=== PATIENT | female | born 1970 | race Caucasian/White ===

== ENCOUNTER 2018-07-14 13:38 | Emergency (ER) | payer MEDICAID, SELFPAY ==
[2018-07-14 13:38] VITALS: BP 124/92; PULSE 118; RESP 18; TEMP 36.6; O2SAT 98; BMI 34.2
--- NOTE | 2018-07-14 14:21 | ED.VISSUMM ---
- ER Visit Summary Date of Service: 07/14/18 Chief Complaint: Right flank pain History of Present Illness: The patient is a 48 F who states she has had a right flank pain right abdominal pain for 3 months. She notes intermittent fevers. She denies any urinary symptoms. Patient has a history of cyclic vomiting. The patient states that she saw her doctor and was told that this is stress related. No diarrheal symptoms. No hematuria. No rashes. She states that it hurts her to lift her leg up. Physical Examination: Afebrile vital signs are stable Gen: Well-nourished well-developed Head: Normocephalic atraumatic Eyes: Perrl EOMI ENT: TMs clear no rhinorrhea moist mucous membranes Neck: Supple no lymphadenopathy no JVD nontender CVS: Regular rate rhythm no murmurs normal S1-S2 Respiratory: No distress clear to auscultation bilaterally chest nontender Abdomen: Soft nontender nondistended normal bowel sounds no masses Back: Nontender Extremity: Nontender no edema Skin: Normal color no rash Neuro: alert orientated ?3 CN II-XII intact normal strength sensation reflexes gait cerebellar Psych: Tearful and anxious Emergency Department Course and Treatment: Urinalysis was negative. CT abdomen pelvis without contrast demonstrates a very large amount of stool in the right ascending colon right upper quadrant. This could very well be the ball the patient tells me that she feels in her abdomen which pushes and possibly the source of her pain. We will be treating with magnesium citrate. After that daily Colace. She is to follow-up with her doctor. Impression: 1. Acute abdominal pain 2. Constipation This note was generated with [employer] dictation software. It may contain incorrect words, spelling, and punctuation that were not noted in review of the chart prior to signing ED Disposition - Plan for ED Patient: Disposition: Home or Assisted Living Chief Complaint: Back Instructions: ED Constipation Prescriptions: Docusate Sodium [Colace] 100 mg PO DAILY #20 cap Magnesium Citrate [Citrate Of Magnesia] 300 ml PO X1 #3 bottle Referrals: Kim Nunes, OMID-C [Primary Care Provider] - 3-5 Days
[2018-07-14 14:37] LABS: Bacteria 0 SEEN /hpf (None Seen); Mucous, Urine 0 SEEN /hpf (<or=2+); Red Blood Cells-Urine 0 SEEN /hpf (0-5); Squamous Epithelial Cells - UA 0 SEEN /hpf (5-10); White Blood Cells 0 SEEN /hpf (0-5)
[2018-07-14 14:39] LABS: Color, Urine Yellow (Yellow); Glucose, Dipstick Normal (Normal); Ketone-Dipstick Negative (Negative); Leukocyte Esterase-Dipstick Negative /ul (Negative); Nitrite-Dipstick Negative (Negative); Occult Blood-Urine Negative /ul (Negative); Protein-Dipstick Negative (Negative); Specific Gravity, Urine 1.005 (1.002-1.030); Urine Bilirubin Dipstick Negative (Negative); Urine Clarity Sl. Cloudy (Clear); Urine Urobilinogen Normal (Normal)
[2018-07-14] MEDS: Acetaminophen 500 MG Tablet 1000 MG PO (15:18)
[2018-07-14] MEDS: Magnesium Citrate 300 ML PO (15:18)
[2018-07-14 15:21] VITALS: PULSE 98; RESP 16
== END 2018-07-14 15:23 | disposition home or self-care (01) ==
PROVIDERS: Emergency Provider Emergency Medicine; Family Provider Nurse Practitioner Primary Care; PCP Nurse Practitioner Primary Care
DX: K59.00 Constipation, unspecified (principal); R10.9 Unspecified abdominal pain; J44.9 Chronic obstructive pulmonary disease, unspecified; F41.9 Anxiety disorder, unspecified; F32.9 Major depressive disorder, single episode, unspecified; Z72.0 Tobacco use; Z79.899 Other long term (current) drug therapy
CPT/HCPCS: 74176; 81001; 99283

== ENCOUNTER 2020-02-07 04:17 | Emergency (ER) | payer MEDICAID, SELFPAY ==
[2020-02-07 04:19] VITALS: BP 137/102; PULSE 103; RESP 27; TEMP 36.2; O2SAT 97; BMI 41.3
--- NOTE | 2020-02-07 04:19 | CT_ITS ---
STUDY: CT BRAIN WITHOUT CONTRAST REASON FOR EXAM: Female, 49 years old. AGGITATED, RUNNING INTO THINGS, NOT MAKING SENSE. ALT LOC RADIATION DOSAGE (If Supplied By Facility): CTDIvol = ( 44.99 ) mGy, DLP = ( 745.49 ) mGycm TECHNIQUE: Transaxial CT imaging of the brain was performed without administration of intravenous contrast material. Individualized dose optimization techniques were used for this CT. COMPARISON: No relevant priors. FINDINGS: Normal soft tissue structures. Normal calvarium. Normal size ventricles and extra-axial spaces for the patient''s age. Normal white matter tracts of the cerebral hemispheres. Normal basal ganglia and thalami. Normal brainstem. Normal cerebellum. There is no intracranial hemorrhage. There are no findings of an acute ischemic infarction. Normal visualized paranasal sinuses. CT/Brain/Head without Contrast IMPRESSION: Normal unenhanced CT scan of the brain. Electronically Signed: Srinivas Baptiste, at 6:12 EDT Tel , Service support ,
--- NOTE | 2020-02-07 04:19 | EKG12_ITS ---
Test Reason : ALT LOC Blood Pressure : / mmHG Vent. Rate : 106 BPM Atrial Rate : 106 BPM P-R Int : 148 ms QRS Dur : 090 ms QT Int : 348 ms P-R-T Axes : 056 061 030 degrees QTc Int : 462 ms Sinus tachycardia Nonspecific ST and T wave abnormality Abnormal ECG Confirmed by KEVIN PELAYO, WILLIAM ([id number]), web editor RENEE GUARDADO ([id number]) on 02/08/2020 3:20:10 PM Referred By: RANDY Confirmed By:WILLIAM BROWN MD
--- NOTE | 2020-02-07 04:25 | RAD_ITS ---
HISTORY: ALT LOC EXAM: XR Chest 1 View: COMPARISON: March 03, 2017 FINDINGS: # of images incl. paperwork: 1 Lungs are clear. Heart is not enlarged. No acute osseous pathology perceived. Pulmonary vascularity is distinct. No effusions. RAD/Chest 1 View (Portable) IMPRESSION: Normal. at 0452 Reported and signed by: Nick Blankenship MD Electronically Signed: Nick Blankenship MD at 4:51 EDT Tel , Service support ,
--- NOTE | 2020-02-07 04:39 | ED.DCSUM_ITS ---
- ER Visit Summary Date of Service: 02/07/20 Chief Complaint: Altered level consciousness with decreased mental status of uncertain etiology possibly secondary to medications History of Present Illness: The patient is a 49 F history of cyclic vomiting syndrome, reflux and COPD not requiring O2. Patient is brought in by squad accompanied by her family. They state that she they think she took a sleeping medication. And now has a decreased mental status. She does occasional use sleeping medications. He states he is never seen like this. He denies any recent head injury. She is on no blood thinners. He states she has not recently been ill. No nausea, vomiting or diarrhea. No fever. Physical Examination: Middle-aged female no acute distress. Vital signs are stable and afebrile. Patient has decreased mental status. But is arousable noxious stimuli. Family is present at bedside. H EENT exam eyes are closed. But if I open them actively her pupils are round and reactive about 3 mm bilaterally. No signs of trauma to her face or scalp. Neck nontender no lymphadenopathy. Lungs clear to auscultation bilaterally. Heart regular rhythm rate about 100 no murmur. Abdomen soft nontender normal bowel sounds no peritoneal signs. Patient does move her extremity extremities noxious stimuli. Neurologically her eyes are closed. She responds to noxious stimuli. Currently she will not follow commands. Test Results: CBC normal white count 10. Hemoglobin 12. No bands. Chemistries unremarkable normal creatinine gap. Glucose of 110. Liver enzymes normal. UA normal. EKG sinus tachycardia rate of 106 no acute signs of DC or ischemia. Ch est x-ray portable 1 view shows no acute abnormality read both myself and the radiologist. CAT scan of her brain without contrast was read as normal by the radiologist reviewed by me. Emergency Department Course and Treatment: Patient brought in for decreased mental status. Extensive differential would include such things as electrolyte abnormalities, infection, intracranial event versus altered level conscious secondary to medication. Treatment Plan: Repeat exam patient is doing well. I feel this is all secondary to the sleep medication she took. And was comfortable taking her home. Outpatient follow-up as needed. Disposition: Discharge Impression: Altered level consciousness secondary to medication This note was generated with Method [employer] software. It may contain incorrect words, spelling, and punctuation that were not noted in review of the chart prior to signing ED Disposition - Plan for ED Patient: Referrals: Kim Nunes, ROLL FORMING MACHINE OPERATOR-C [Primary Care Provider] -
[2020-02-07] MEDS: 0.9% Normal Saline 1,000 ML 1000 ML IV (04:46)
[2020-02-07 05:21] LABS: Bacteria 0 SEEN /hpf (None Seen); Mucous, Urine 0 SEEN /hpf (<or=2+); Red Blood Cells-Urine 0 SEEN /hpf (0-5); White Blood Cells 0 SEEN /hpf (0-5)
[2020-02-07 05:23] LABS: Color, Urine Yellow (Yellow); Glucose, Dipstick Normal (Normal); Ketone-Dipstick Negative (Negative); Leukocyte Esterase-Dipstick Negative /ul (Negative); Nitrite-Dipstick Negative (Negative); Occult Blood-Urine Negative /ul (Negative); Protein-Dipstick Negative (Negative); Urine Bilirubin Dipstick Negative (Negative); Urine Clarity Sl. Cloudy (Clear); Urine Urobilinogen Normal (Normal)
[2020-02-07 05:28] LABS: Absolute Lymphocyte Count 2.07 X10^3/uL (0.83-4.51); Absolute Neutrophil Count 7.7 X10^3/uL (2.0-7.7); Basophil# 0.05 X10^3/uL; Basophil% 0.5 % (0-1); Eosinophil# 0.09 X10^3/uL; Eosinophils% 0.8 % (0-5); Hemoglobin 12.5 g/dL (12.0-15.0); Lymphocyte # 2.07 X10^3/ul (4.0); Lymphocyte % 19.5 % (19-41); Mean Corp Hgb Conc 30.5 g/dL (32-36); Mean Corpuscular Hgb 25.6 pg (27.0-32.0); Mean Platelet Vol. 11.4 fl (6.2-12.0); Monocyte# 0.65 X10^3/uL; Monocyte% 6.1 % (0-10); NRBC Flagged by Analyzer 0 % (0-5); Neutrophil # 7.73 X10^3/uL (2.7-7.7); Neutrophil % 72.6 % (47-70); Platelet Count 222 K/mm3 (150-450); RBC Distribution Width CV 15.4 % (11.6-14.6); RBC Distribution Width SD 47.1 fl (35.1-43.9); Red Blood Count 4.88 M/mm3 (4.2-5.4); White Blood Count 10.6 K/mm3 (4.4-11.0)
[2020-02-07 05:46] LABS: Squamous Epithelial Cells - UA 0-5 SEEN /hpf (5-10)
[2020-02-07 05:48] LABS: Alcohol, Blood (Medical)-Serum < 3.0 mg/dL
[2020-02-07 05:51] LABS: ALB/GLOB Ratio 0.8 RATIO (0.9-2.4); AST(SGOT) 16 U/L (15-37); Alanine Aminotransfer ALT/SGPT 17 U/L (13-56); Albumin, Serum 3.4 g/dL (3.2-5.0); Alkaline Phosphatase 113 U/L (45-117); Anion Gap 7 (5-15); BUN 9 mg/dL (7-18); BUN/Creat Ratio 9.5 RATIO (10-20); Calcium,Total 8.5 mg/dL (8.5-10.1); Chloride 101 mmol/L (98-107); Creatinine, Serum 0.95 mg/dL (0.55-1.02); EST Glomerular Filtration Rate 67 mL/min (>60); Est Glom Filt Rate - Afr Amer 81 mL/min (>60); Estimated Creatinine Clearance 65.88 ml/min; Globulin 4.1 g/dL (2.2-4.2); Glucose 110 mg/dL (74-106); Potassium 3.4 mmol/L (3.5-5.1); Protein, Total 7.5 g/dL (6.4-8.2); Sodium Level 138 mmol/L (136-145)
--- NOTE | 2020-02-07 06:22 | ED.DEP ---
ED Disposition - Plan for ED Patient: Disposition: Home or Assisted Living Instructions: Altered Loc Referrals: Kim Nunes, VERIFICATION ENGINEER-C [Primary Care Provider] - 1-2 Days if not improving Additional Instructions: All of her labs and tests today were normal. This appears to be secondary to the sleep medication she took. Follow-up with your doctor if not improving. She should get back to normal later today.
--- NOTE | 2020-02-07 06:34 | ED.RN ---
PT REMAINS RESTLESS AND ATTEMPTS TO GET OUT OF BED,PT MOVED TO ROOM 2. PT'S AND DAUGHTER LEFT AND CAN SEE PT BETTER IN THIS ROOM.PT SPEECH SLURRED AT TIMES, AND MUCH INSTRUCTIONS NEEDED TO GET HER TO DO WHAT IS ASKED.
[2020-02-07 06:36] VITALS: PULSE 99; RESP 20; O2SAT 99
[2020-02-07 07:30] VITALS: PULSE 102; RESP 22; O2SAT 98
[2020-02-07 08:51] VITALS: BP 135/88; PULSE 98; RESP 22; O2SAT 98
[2020-02-07 09:41] LABS: Bedside Glucose 130 mg/dL (70-110)
== END 2020-02-07 08:51 | disposition home or self-care (01) ==
PROVIDERS: Emergency Provider Emergency Medicine; PCP Nurse Practitioner Primary Care
DX: R40.4 Transient alteration of awareness (principal); J44.9 Chronic obstructive pulmonary disease, unspecified; Z72.0 Tobacco use
CPT/HCPCS: 70450; 71045; 80053; 80320; 81001; 82962; 85025; 93005; 96360; 96361; 99285; J7030; P9612; A4216; G0480

== ENCOUNTER 2020-12-22 17:26 | Emergency (ER) | payer MEDICAID, SELFPAY ==
[2020-12-22 17:27] VITALS: BP 121/109; PULSE 114; RESP 16; TEMP 36.8; O2SAT 96; BMI 35.8
[2020-12-22] MEDS: LORazepam 1 MG Tablet PO (18:14)
[2020-12-22] MEDS: proMETHazine 25 MG Tablet PO (18:14)
[2020-12-22 18:29] LABS: Mucous, Urine 0 SEEN /hpf (<or=2+); Red Blood Cells-Urine 0 SEEN /hpf (0-5); White Blood Cells 0 SEEN /hpf (0-5)
[2020-12-22 18:32] LABS: Absolute Lymphocyte Count 2.49 X10^3/uL (0.83-4.51); Absolute Neutrophil Count 6.3 X10^3/uL (2.0-7.7); Basophil# 0.04 X10^3/uL; Basophil% 0.4 % (0-1); Eosinophil# 0.06 X10^3/uL; Eosinophils% 0.6 % (0-5); Hematocrit 40.1 % (37-47); Hemoglobin 12.9 g/dL (12.0-15.0); Lymphocyte # 2.49 X10^3/ul (4.0); Lymphocyte % 26.3 % (19-41); Mean Corp Hgb Conc 32.2 g/dL (32-36); Mean Corpuscular Hgb 28.5 pg (27.0-32.0); Mean Corpuscular Volume 88.7 fL (81-99); Mean Platelet Vol. 10.7 fl (6.2-12.0); Monocyte# 0.58 X10^3/uL; Monocyte% 6.1 % (0-10); NRBC Flagged by Analyzer 0 % (0-5); Neutrophil # 6.27 X10^3/uL (2.7-7.7); Neutrophil % 66.2 % (47-70); Platelet Count 316 K/mm3 (150-450); RBC Distribution Width SD 45.5 fl (35.1-43.9); Red Blood Count 4.52 M/mm3 (4.2-5.4); White Blood Count 9.5 K/mm3 (4.4-11.0)
[2020-12-22 18:33] LABS: Color, Urine Yellow (Yellow); Glucose, Dipstick Normal (Normal); Ketone-Dipstick 5 mg/dl (Negative); Leukocyte Esterase-Dipstick 25 /ul (Negative); Nitrite-Dipstick Negative (Negative); Occult Blood-Urine Negative /ul (Negative); Protein-Dipstick Negative (Negative); Urine Bilirubin Dipstick Negative (Negative); Urine Clarity Clear (Clear); Urine Urobilinogen Normal (Normal)
[2020-12-22 18:41] LABS: Amphetamine Urine VISTA POSITIVE (<1000 ng/mL); Barbiturate Urine VISTA NEGATIVE (< 200 ng/mL); Benzodiazepine Urine VISTA NEGATIVE (< 200 ng/mL); Cocaine Urine VISTA NEGATIVE (< 300 ng/mL); Ecstacy Urine VISTA POSITIVE (< 500 ng/mL); Methadone Urine VISTA NEGATIVE (< 300 ng/mL); PCP Urine VISTA NEGATIVE (< 25 ng/mL); THC Urine VISTA POSITIVE (< 50 ng/mL); Vista UDS pH Range 6
[2020-12-22 18:42] LABS: Bacteria RARE /hpf (None Seen); Hyaline Cast 0-5 SEEN /lpf (0-5); Squamous Epithelial Cells - UA 0-5 SEEN /hpf (5-10)
[2020-12-22 18:51] LABS: Anion Gap 7 (5-15); BUN 7 mg/dL (7-18); BUN/Creat Ratio 6.5 RATIO (10-20); Calcium,Total 8.8 mg/dL (8.5-10.1); Chloride 108 mmol/L (98-107); Creatinine, Serum 1.08 mg/dL (0.55-1.02); EST Glomerular Filtration Rate 57 mL/min (>60); Est Glom Filt Rate - Afr Amer 70 mL/min (>60); Estimated Creatinine Clearance 57.32 ml/min; Glucose 86 mg/dL (74-106); Potassium 3.6 mmol/L (3.5-5.1); Sodium Level 139 mmol/L (136-145); Thyroid Stim Hormone (TSH) 1.14 uIU/mL (0.358-3.74)
--- NOTE | 2020-12-22 18:57 | ED.VISSUMM ---
- ER Visit Summary Date of Service: 12/22/20 Chief Complaint: Anxiety History of Present Illness: The patient is a 50 F who sees Kim Des. She reports that my dog has worms and no one can see them but me. State this is caused a constant panic attack for the past 4 days. She denies any other visual hallucinations. She denies suicidal or homicidal ideation. She denies auditory hallucinations. On review of systems patient complains of nausea. She reports that she vomited 2 hours ago. There is no blood or emesis. She denies any abdominal pain or diarrhea. She has a headache is 7 out of 10 in severity. She does have a history of similar headaches. Daughter reports patient has a history of methamphetamine abuse. Physical Examination: Vitals: 90.2, 121/109, 114, 16, 96% room air she is not hypoxic. General: Well-nourished and well-developed. Head: Normocephalic atraumatic. Neck: Supple, no lymphadenopathy. No JVD. Nontender. Cardiovascular: Regular rate and rhythm. No murmurs. Respiratory: No respiratory distress. Clear to auscultation bilaterally. Abdominal: Soft, nontender, nondistended, normal bowel sounds. No guarding, rebound, or peritoneal signs. Back: Nontender. Extremities: Nontender, no edema. Skin: Normal color, no rash. Neurologic: Alert and oriented ?3. Cranial nerves II through XII are intact. Normal strength and sensation. Psych: Mental status exam: Patient appears their stated age. Good posture and grooming. Good eye contact. Normal rate, volume, and latency of speech. No suicidal or homicidal ideation. No auditory hallucinations. Flow of thought is tangential. Patient is very irritable and labile.. Insight and judgment is fair. Test Results: CBC is normal. UA is negative. Tox screen shows methamphetamines, amphetamines, and marijuana. Chem-7 shows a chloride of 108 and creatinine of 1.08. TSH is 1.14. Alcohol is negative. Emergency Department Course and Treatment: Patient was discussed with case management and has been seen by them in the emergency department. She does not meet criteria for psychiatric hospitalization. I feel that that her visual hallucinations are likely due to the methamphetamine abuse. Treatment Plan: Patient will be discharged instructions to follow-up with 180 soon as possible. Return to the emergency department for any worsening symptoms. Disposition: To home in [facility] and stable condition. Impression: 1 1. Polysubstance abuse. This note was generated with [employer] dictation software. It may contain incorrect words, spelling, and punctuation that were not noted in review of the chart prior to signing ED Disposition - Plan for ED Patient: Instructions: ED Drug Abuse Referrals: [facility] [STAFF PHYSICIAN] - As soon as possible
[2020-12-22 19:04] LABS: Alcohol, Blood (Medical)-Serum < 3.0 mg/dL
[2020-12-22 19:15] VITALS: RESP 16
--- NOTE | 2020-12-22 19:35 | CM.ED ---
SOCIAL WORK Informant: Dr. Bal Reason for Consult: Mental Health/Substance Abuse Met with patient and daughter in room along with Dr. Bal. Patient presents to [facility] ER by her daughter due to visual hallucinations. Daughter reports patient is seeing worms and bugs in the home. Daughter reports patient with history of meth use. Patient admits to use of meth 5 days ago and marijuana 3 days ago. Patient reports many social stressors over the last year that led to meth use. Patient denies suicidal and homicidal ideation, plan or intent. Lab work was completed. Dr. Bal along with this worker reviewed results with patient and daughter with patient's permission. Patient positive for methamphetamines. Patient continued to deny recent use. Patient counseled on use and side effects of meth and provided with resources. Emotional support provided to daughter. Daughter to transport patient home. Plan: Home with substance abuse resources provided PELON Hyatt, SUPERINTENDENT GAS DISTRIBUTION
[2020-12-22 19:37] VITALS: RESP 18
== END 2020-12-22 19:52 | disposition home or self-care (01) ==
LOC: ED 18:34
PROVIDERS: Emergency Provider Emergency Medicine; PCP Nurse Practitioner Primary Care
DX: F19.10 Other psychoactive substance abuse, uncomplicated (principal)
CPT/HCPCS: 80048; 80307; 81001; 82077; 84443; 85025; 99283

== ENCOUNTER 2021-08-30 17:51 | Emergency (ER) | payer MEDICAID, SELFPAY ==
[2021-08-30 17:52] VITALS: BP 159/85; PULSE 106; RESP 15; TEMP 35.3; O2SAT 100; BMI 34.9
--- NOTE | 2021-08-30 18:40 | EKG12_ITS ---
Test Reason : [facility] [place] Blood Pressure : / mmHG Vent. Rate : 088 BPM Atrial Rate : 087 BPM P-R Int : 112 ms QRS Dur : 086 ms QT Int : 364 ms P-R-T Axes : 012 051 036 degrees QTc Int : 440 ms Sinus rhythm Abnormal ECG Confirmed by KEVIN PELAYO, WILLIAM ([id number]), scientific editor SHAUNNA NARAYANAN ([id number]) on 09/04/2021 10:54:47 AM Referred By: SUZE Confirmed By:WILLIAM BROWN MD
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
[2021-08-30] MEDS: LORazepam 2 MG/ML Syringe 1 MG IM ×2 (19:14→22:40)
[2021-08-30 19:22] VITALS: BP 141/71; PULSE 91; RESP 14; O2SAT 97
[2021-08-30 19:26] LABS: Absolute Lymphocyte Count 2.54 X10^3/uL (0.83-4.51); Absolute Neutrophil Count 4.4 X10^3/uL (2.0-7.7); Basophil# 0.06 X10^3/uL; Basophil% 0.8 % (0-1); Eosinophil# 0.11 X10^3/uL; Eosinophils% 1.5 % (0-5); Hematocrit 46.5 % (37-47); Hemoglobin 14.6 g/dL (12.0-15.0); Lymphocyte # 2.54 X10^3/ul (0.83-4.51); Mean Corp Hgb Conc 31.4 g/dL (32-36); Mean Corpuscular Hgb 28.4 pg (27.0-32.0); Mean Corpuscular Volume 90.5 fL (81-99); Mean Platelet Vol. 10.9 fl (6.2-12.0); Monocyte# 0.37 X10^3/uL; Monocyte% 4.9 % (0-10); NRBC Flagged by Analyzer 0 % (0-5); Neutrophil # 4.38 X10^3/uL (2.7-7.7); Neutrophil % 58.5 % (47-70); Platelet Count 278 K/mm3 (150-450); RBC Distribution Width CV 12.6 % (11.6-14.6); Red Blood Count 5.14 M/mm3 (4.2-5.4); White Blood Count 7.5 K/mm3 (4.4-11.0)
[2021-08-30 19:46] LABS: ALB/GLOB Ratio 0.9 RATIO (0.9-2.4); AST(SGOT) 15 U/L (15-37); Alanine Aminotransfer ALT/SGPT 17 U/L (13-56); Albumin, Serum 3.7 g/dL (3.2-5.0); Alkaline Phosphatase 92 U/L (45-117); Anion Gap 8 (5-15); BUN 8 mg/dL (7-18); BUN/Creat Ratio 10.1 RATIO (10-20); CPK Total, Creatine Kinase 72 U/L (26-192); Calcium,Total 9.3 mg/dL (8.5-10.1); Chloride 105 mmol/L (98-107); Creatinine, Serum 0.79 mg/dL (0.55-1.02); EST Glomerular Filtration Rate 82 mL/min (>60); Est Glom Filt Rate - Afr Amer 99 mL/min (>60); Estimated Creatinine Clearance 77.51 ml/min; Globulin 4.1 g/dL (2.2-4.2); Glucose 68 mg/dL (74-106); Potassium 3.1 mmol/L (3.5-5.1); Protein, Total 7.8 g/dL (6.4-8.2); Sodium Level 140 mmol/L (136-145)
[2021-08-30 20:02] VITALS: RESP 14
--- NOTE | 2021-08-30 20:03 | ED.RN ---
pt refused sandwich, string cheese and cookie d/t being mad because she could not have silverware to eat yogurt. she said she would drink the yogart then refused it.
[2021-08-30 20:06] LABS: Amphetamine Urine VISTA POSITIVE (<1000 ng/mL); Barbiturate Urine VISTA NEGATIVE (< 200 ng/mL); Benzodiazepine Urine VISTA NEGATIVE (< 200 ng/mL); Cocaine Urine VISTA NEGATIVE (< 300 ng/mL); Ecstacy Urine VISTA NEGATIVE (< 500 ng/mL); Methadone Urine VISTA NEGATIVE (< 300 ng/mL); PCP Urine VISTA NEGATIVE (< 25 ng/mL); THC Urine VISTA POSITIVE (< 50 ng/mL); Vista UDS pH Range 5
--- NOTE | 2021-08-30 20:29 | CM.ED ---
SOCIAL WORK Referral called to [facility]. No beds available. Referral called and faxed to [facility]. Pending review at this time. Patrick Cisneros, TABLE HAND, TRANSPORTATION SECURITY OFFICER
--- NOTE | 2021-08-30 20:43 | ED.RN ---
Received report from Meg. PT now in room 5 with mateoter.
[2021-08-30 21:04] LABS: Bacteria 0 SEEN /hpf (None Seen); Mucous, Urine 0 SEEN /hpf (<or=2+); Red Blood Cells-Urine 0 SEEN /hpf (0-5)
--- NOTE | 2021-08-30 21:06 | CM.ED ---
SOCIAL WORK Call to [facility] to check on status of referral. Under review at this time. Patrick Cisneros, MICA BUILDER, KENNEL OPERATOR
[2021-08-30 21:19] LABS: Color, Urine Yellow (Yellow); Glucose, Dipstick Normal (Normal); Ketone-Dipstick Negative (Negative); Leukocyte Esterase-Dipstick 25 /ul (Negative); Nitrite-Dipstick Negative (Negative); Occult Blood-Urine Negative /ul (Negative); Protein-Dipstick Negative (Negative); Urine Bilirubin Dipstick Negative (Negative); Urine Clarity Clear (Clear); Urine Urobilinogen Normal (Normal)
[2021-08-30 21:32] LABS: Hyaline Cast 0-5 SEEN /lpf (0-5); Squamous Epithelial Cells - UA 0-5 SEEN /hpf (5-10); White Blood Cells 0-5 SEEN /hpf (0-5)
[2021-08-30 21:53] VITALS: RESP 16
--- NOTE | 2021-08-30 21:58 | CM.ED ---
SOCIAL WORK Referral faxed to [facility]. Patient accepted to Dual Unit by Dr. Kumari. Report to be called to [phone] option 1. [place] to set up transport. Patient and patient's updated. [place] [facility] faxed per request. Patrick Cisneros, RASPBERRY CHECKER, OFFICE INSPECTOR
[2021-08-30 22:40] VITALS: RESP 16
[2021-08-30] MEDS: clonazePAM 0.5 MG Tablet PO (23:00)
[2021-08-30] MEDS: Amitriptyline 100 MG Tablet 150 MG PO (23:00)
[2021-08-30] MEDS: Gabapentin 800 MG Tablet PO (23:00)
--- NOTE | 2021-08-30 23:03 | EDS_ITS ---
HPI HPI - Psych History of Present Illness Chief Complaint: Mental Health Informant: patient Onset/Context/Timing Onset: Weeks (4) Context: Gradual Onset Timing: Continuous Worsened by: - (Nothing) Relieved by: Nothing Associated Symptoms Associated Symptoms - Psych: Positive for Depressed, Change in Eating and Change in sleeping Narrative Narrative: Patient presents with depression and suicidal ideation that has been getting worse over the last 4 weeks. Patient states she has been feeling more depressed lately. Patient states she has not been eating or sleeping as well. Patient states that she cut herself with scissors to relieve stress. Patient denies any visual or auditory hallucinations. Patient states she has been more depressed since her father recently. Patient states that when she tries to sleep states she feels like she hears her father crying in pain. PFSH PFS Medical History Anxiety COPD (chronic obstructive pulmonary disease) Depression Substance abuse Home Medications budesonide-formoterol 2 puff INHALATION BID 10/22/16 [History Last Taken 06/07/17 20:00] omeprazole 40 mg PO DAILY #30 cap 03/06/17 [Rx Last Taken 06/07/17 10:00] dicyclomine 10 mg PO TIDAC #20 cap 06/10/17 [Rx Last Taken Unknown] amitriptyline 150 mg PO QHS 07/14/18 [History Last Taken Unknown] clonazepam 0.25 mg PO BID 07/14/18 [History Last Taken Unknown] gabapentin 800 mg PO TIDCM 12/22/20 [History Last Taken Unknown] Allergy/AdvReac Type Severity Reaction Status Date / Time No Known Allergies Allergy Verified 08/30/21 17:54 Surgical History (Updated 08/30/21 @ 23:[address] Rodrigo Ferrari DO) History of hysterectomy Social History Smoking Status: Current every day smoker tobacco type: cigarettes ROS ROS ED Constitutional Constitutional ED: Denies chills or fever(s) Eyes Eyes: Denies blurry vision or change in vision ENT ENT ED: Denies rhinorrhea or sore throat Cardiovascular Cardiovascular: Denies chest pain or palpitations Respiratory/Chest Respiratory/Chest: Denies cough or dyspnea Gastrointestinal Gastrointestinal: Reports nausea; Denies vomiting Genitourinary Genitourinary ED: Denies dysuria or hematuria Musculoskeletal Musculoskeletal: Reports back pain; Denies neck pain Integumentary Denies abscess or rash Neurologic Neurologic: Denies headache(s) or weakness Allergic/Immunologic Allergic/Immunologic ED: Denies mouth swelling or urticaria EXAM Physical Exam Const Vital Signs: 08/30/21 17:52 08/30/21 19:22 08/30/21 20:02 Temperature 95.6 F L Temperature Source Temporal Pulse Rate 106 H 91 Respiratory Rate 15 14 14 Blood Pressure 159/85 H 141/71 H Blood Pressure Mean 109 94 Pulse Ox 100 97 Oxygen Delivery Method Room Air Room Air Positive well nourished, well developed and obese General Appearance ED: well developed Nutritional Appearance: obese HEENT normocephalic and atraumatic Neck supple and no JVD Resp normal respiratory effort and clear to auscultation bilaterally Cardio no murmurs Rate: regular rate Rhythm: regular rhythm GI non-tender and non-distended Auscultation: normoactive bowel sounds Palpation: soft Extremity normal to inspection General Extremety ED: Negative for edema or tenderness General Extremity: Negative for edema Neuro oriented x3, CN's II-XII intact bilaterally and no sensory deficits noted Sensorium / Orientation: alert Motor Exam: strength 5/5 throughout Psych mental status grossly normal Activity / Motor Behavior: avoids eye contact Speech: pressured Mood & Affect: depressed, tearful and labile affect Thought Content: suicidality Skin Rashes: no rashes Trauma: laceration linear and superficial MDM MDM MDM Narrative Medical decision making narrative: Suicide precautions were maintained. CBC was within normal limits. Urinalysis does not show any evidence of urinary tract in fection. Urine tox screen was positive for amphetamines and cannabinoids. Comprehensive metabolic profile was within normal limits. Total CPK was normal at 72. EKG was obtained. On my interpretation, it showed a normal sinus rhythm with a rate of 88. OR interval, QRS interval, and QTc intervals were all normal. [place] was normal. There are nonspecific ST-T wave changes. This was unchanged compared to previous EKG dated 02/07/2020. Serum alcohol level was normal. COVID-19 rapid antigen was obtained and was negative. Social work was in to evaluate the patient. She felt that the patient would benefit from inpatient treatment. She was able to arrange for admission to [facility] for psychiatry. Patient will be transferred there. Lab Data Attestation: I reviewed the patient's lab results. Labs: Laboratory Results - last 24 hr 08/30/21 08/30/21 08/30/21 18:13 18:55 19:09 WBC 7.5 RBC 5.14 Hgb 14.6 Hct 46.5 MCV 90.5 MCH 28.4 MCHC 31.4 L RDW Std Deviation 42.0 RDW Coeff of David 12.6 Plt Count 278 MPV 10.9 Immature Gran % (Auto) 0.300 Neut % (Auto) 58.5 Lymph % (Auto) 34.0 [place] % (Auto) 4.9 Eos % (Auto) 1.5 Baso % (Auto) 0.8 Absolute Neuts (auto) 4.4 Absolute Lymphs (auto) 2.54 Nucleated RBC % 0 Sodium Potassium Chloride Carbon Dioxide Anion Gap BUN Creatinine Estim Creat Clear Calc Est GFR (MDRD) Af Amer Est GFR (MDRD) Non-Af BUN/Creatinine Ratio Glucose Calcium Total Bilirubin AST ALT Alkaline Phosphatase Total Creatine Kinase Total Protein Albumin Globulin Albumin/Globulin Ratio Urine Color Yellow Urine Clarity Clear Urine pH 6.0 Ur Specific [place] 1.010 Urine Protein Negative Urine Glucose (UA) Normal Urine Ketones Negative Urine Occult Blood Negative Urine Nitrite Negative Urine Bilirubin Negative Urine Urobilinogen Normal Ur Leukocyte Esterase 25 H Urine RBC 0 SEEN Urine WBC 0-5 SEEN Ur Squamous Epith Cells 0-5 SEEN Urine Bacteria 0 SEEN Hyaline Casts 0-5 SEEN Urine Mucus 0 SEEN Urine Opiates Screen NEGATIVE Urine Methadone Screen NEGATIVE Ur Barbiturates Screen NEGATIVE Ur Phencyclidine Scrn NEGATIVE Ur Amphetamines Screen POSITIVE H U Methamphetamin-MDMA NEGATIVE U Benzodiazepines Scrn NEGATIVE Urine Cocaine Screen NEGATIVE U Cannabinoids Screen POSITIVE H Ur Drug Screen Comment Ethyl Alcohol 08/30/21 08/30/21 19:09 19:09 WBC RBC Hgb Hct MCV MCH MCHC RDW Std Deviation RDW Coeff of David Plt Count MPV Immature Gran % (Auto) Neut % (Auto) Lymph % (Auto) [place] % (Auto) Eos % (Auto) Baso % (Auto) Absolute Neuts (auto) Absolute Lymphs (auto) Nucleated RBC % Sodium 140 Potassium 3.1 L Chloride 105 Carbon Dioxide 27.0 Anion Gap 8 BUN 8 Creatinine 0.79 Estim Creat Clear Calc 77.51 Est GFR (MDRD) Af Amer 99 Est GFR (MDRD) Non-Af 82 BUN/Creatinine Ratio 10.1 Glucose 68 L Calcium 9.3 Total Bilirubin 0.40 AST 15 ALT 17 Alkaline Phosphatase 92 Total Creatine Kinase 72 Total Protein 7.8 Albumin 3.7 Globulin 4.1 Albumin/Globulin Ratio 0.9 Urine Color Urine Clarity Urine pH Ur Specific [place] Urine Protein Urine Glucose (UA) Urine Ketones Urine Occult Blood Urine Nitrite Urine Bilirubin Urine Urobilinogen Ur Leukocyte Esterase Urine RBC Urine WBC Ur Squamous Epith Cells Urine Bacteria Hyaline Casts Urine Mucus Urine Opiates Screen Urine Methadone Screen Ur Barbiturates Screen Ur Phencyclidine Scrn Ur Amphetamines Screen U Methamphetamin-MDMA U Benzodiazepines Scrn Urine Cocaine Screen U Cannabinoids Screen Ur Drug Screen Comment Ethyl Alcohol 6.0 EKG Initial EKG: Interpretation: Sinus Rhythm (88), No Acute Injury Pattern and Non- Specific ST Changes Prior EKG tracings: available for review Prior: Unchanged (02/07/2020) Discharge Plan Triage Chief Complaint: Mental Health ED Provider: Rodrigo Ferrari Dx/Rx/DC Orders Prescriptions: No Action budesonide-formoterol 1 INHALER inhaler 2 puff inhalation BID RF: 0 omeprazole 20 MG capsule 40 mg PO DAILY Qty: 30 RF: 0 dicyclomine 10 MG capsule 10 mg PO TIDAC Qty: 20 RF: 0 amitriptyline 150 MG tablet 150 mg PO QHS RF: 0 clonazepam 0.25 MG tablet,disintegrating 0.25 mg PO BID RF: 0 gabapentin 800 MG tablet 800 mg PO TIDCM RF: 0 Primary Care Provider: Kim Nunes NP Referrals: Kim Nunes NP, VALUE ANALYSIS COORDINATOR-C [Primary Care Provider] - 5-7 Days Disposition Disposition: Psychiatric Hospital or [facility]
[2021-08-30 23:25] VITALS: BP 130/78; PULSE 78; RESP 16; O2SAT 97
[2021-08-31 00:05] VITALS: RESP 16
[2021-08-31 01:40] VITALS: RESP 15
[2021-08-31 02:40] VITALS: RESP 16
[2021-08-31 03:56] VITALS: RESP 14
[2021-08-31 04:41] VITALS: BP 140/71; PULSE 87; RESP 16; O2SAT 97
[2021-08-31 07:31] VITALS: BP 140/71; PULSE 87; RESP 16; O2SAT 97
== END 2021-08-31 07:36 ==
PROVIDERS: Emergency Provider Emergency Medicine; PCP Nurse Practitioner Primary Care
DX: F32.9 Major depressive disorder, single episode, unspecified (principal); R45.851 Suicidal ideations; F17.210 Nicotine dependence, cigarettes, uncomplicated; E66.9 Obesity, unspecified; J44.9 Chronic obstructive pulmonary disease, unspecified; Z79.899 Other long term (current) drug therapy
CPT/HCPCS: 80053; 80307; 81001; 82077; 82550; 85025; 87426; 93005; 96372; 99285

== ENCOUNTER 2021-12-13 10:39 | Emergency (ER) | payer MEDICAID, SELFPAY ==
[2021-12-13] VITALS (7 sets, daily range): BP systolic 112–113; BP diastolic 43–50; PULSE 100–119; RESP 14–26; TEMP 35.4; O2SAT 100; BMI 44.9
--- NOTE | 2021-12-13 10:58 | EX.ED.VIS.PS ---
HPI HPI - Psych History of Present Illness Chief Complaint: Mental Health Narrative Narrative: 51-year-old female with history of anxiety disorder and panic disorder presenting with concern for worms found on her body when she woke up from sleep. She states she took multiple pictures of the worms. She states she did take a shower and wash herself off. She currently has her clothes that she was wearing in bed and she has them in a bag and states there is worms in the back. Patient denies any drug use or alcohol use. Patient states has not had this problem in the past. PFSH PFSH Medical History Anxiety COPD (chronic obstructive pulmonary disease) Depression Substance abuse Home Medications budesonide-formoterol 2 puff INHALATION BID 10/22/16 [History Last Taken 06/07/17 20:00] omeprazole 40 mg PO DAILY #30 cap 03/06/17 [Rx Last Taken 06/07/17 10:00] dicyclomine 10 mg PO TIDAC #20 cap 06/10/17 [Rx Last Taken Unknown] amitriptyline 150 mg PO QHS 07/14/18 [History Last Taken Unknown] clonazepam 0.25 mg PO BID 07/14/18 [History Last Taken Unknown] gabapentin 800 mg PO TIDCM 12/22/20 [History Last Taken Unknown] Allergy/AdvReac Type Severity Reaction Status Date / Time No Known Allergies Allergy Verified 12/13/21 10:40 Surgical History History of hysterectomy Social History Smoking Status: Current every day smoker tobacco type: cigarettes ROS ROS ED Constitutional Constitutional ED: Denies chills or fever(s) Eyes Eyes: Denies blurry vision or diplopia ENT ENT ED: Denies rhinorrhea or sore throat Cardiovascular Cardiovascular: Denies chest pain or palpitations Respiratory/Chest Respiratory/Chest: Denies cough or dyspnea Gastrointestinal Gastrointestinal: Denies abdominal pain, nausea or vomiting Genitourinary Genitourinary ED: Denies dysuria or hematuria Musculoskeletal Musculoskeletal: Denies arthralgias or myalgias Integumentary Reports other Details: Superficial bruises on the lower extremities ; Denies rash Neurologic Neurologic: Denies paresthesias Psychiatric Psychiatric: Denies depression EXAM Physical Exam Const Vital Signs: 12/13/21 10:40 12/13/21 13:23 12/13/21 14:51 Temperature 95.8 F L Temperature Source Temporal Pulse Rate 119 H Respiratory Rate 18 26 H 16 Blood Pressure 113/43 L Blood Pressure Mean 66 Pulse Ox 100 Oxygen Delivery Method Room Air Positive well nourished General Appearance ED: NAD HEENT normocephalic and atraumatic Eyes PERRL and EOMs intact bilaterally Resp normal respiratory effort and clear to auscultation bilaterally Cardio Rate: tachycardic Rhythm: regular rhythm GI non-tender Palpation: soft Neuro oriented x3 and CN's II-XII intact bilaterally Sensorium / Orientation: alert Psych Attitude: paranoid and bizarre Activity / Motor Behavior: psychomotor agitation and disorganized Speech: rapid Mood & Affect: anxious Thought Process: disorganized and illogical Thought Content: No suicidality and No homicidality Attention / Concentration: attention grossly impaired and concentration grossly impaired Skin Skin Narrative: No worms were found on the patient's body. She points to small bruises on her legs. She also points to veins and states that these are worms. MDM MDM MDM Narrative Medical decision making narrative: Patient very anxious and she exhibits bizarre behavior. She appears to see worms on her body which aren't present. She has a bag with her close and it on the counter and I did dump this out on a Chux pad and inspected this chart and found no worms even after I flipped it inside out. Patient then at that time grabbed the shirt and squeezed it saying there was a worm in the shirt and wanted me to squeeze it. After she handed me the shirt I unrolled it and it was just a wrinkle in the sure there were no worms found. Patient then started pointing to her extremities and stating that the veins in her legs were warm as they weren't veins. Patient also pointing to small bruises on the legs. EKG performed for medical clearance shows a sinus rhythm ventricular rate of 90 bpm without sign of ischemic change my interpretation. CBC shows no leukocytosis. Hemoglobin Hockert are stable. Platelets are normal. Creatinine is slightly increased at 1.06. EtOH negative. hCG negative. Urinalysis negative for infection. chest x-ray on my interpretation shows no acute cardiopulmonary process the radiologist does agree. Urine drug screen is positive for amphetamines and she does admit to using this a couple of days ago. She does not believe it is related. Patient still exhibiting symptoms of acute psychosis. She was evaluated by social work and we will attempt to make her an inpatient due to the psychosis. She is medically cleared at this time. Patient will be signed out to incoming ED physician for monitoring until placement site can be obtained. Impression: 1. Psychosis 2. History of methamphetamine abuse 3. Formication Lab Data Labs: Laboratory Results - last 24 hr 12/13/21 12/13/21 12/13/21 11:15 11:15 11:15 WBC 10.3 RBC 4.66 Hgb 13.0 Hct 41.7 MCV 89.5 MCH 27.9 MCHC 31.2 L RDW Std Deviation 45.4 H RDW Coeff of David 13.9 Plt Count 266 MPV 11.0 Immature Gran % (Auto) 0.500 Neut % (Auto) 75.8 H Lymph % (Auto) 16.8 L Bates % (Auto) 5.6 Eos % (Auto) 0.7 Baso % (Auto) 0.6 Absolute Neuts (auto) 7.8 H Absolute Lymphs (auto) 1.74 Nucleated RBC % 0 Differential Comment SCANNED Sodium 139 Potassium 3.9 Chloride 106 Carbon Dioxide 27.0 Anion Gap 6 BUN 8 Creatinine 1.06 H Estim Creat Clear Calc 57.77 Est GFR (MDRD) Af Amer 71 Est GFR (MDRD) Non-Af 58 L BUN/Creatinine Ratio 7.5 L Glucose 95 Calcium 9.2 Total Creatine Kinase Serum , Qual Urine Color Urine Clarity Urine pH Ur Specific [place] Urine Protein Urine Glucose (UA) Urine Ketones Urine Occult Blood Urine Nitrite Urine Bilirubin Urine Urobilinogen Ur Leukocyte Esterase Urine RBC Urine WBC Ur Squamous Epith Cells Urine Bacteria Urine Mucus Urine Opiates Screen Urine Methadone Screen Ur Barbiturates Screen Ur Phencyclidine Scrn Ur Amphetamines Screen U Methamphetamin-MDMA U Benzodiazepines Scrn Urine Cocaine Screen U Cannabinoids Screen Ur Drug Screen Comment Ethyl Alcohol < 3.0 12/13/21 12/13/21 12/13/21 11:15 11:15 11:25 WBC RBC Hgb Hct MCV MCH MCHC RDW Std Deviation RDW Coeff of David Plt Count MPV Immature Gran % (Auto) Neut % (Auto) Lymph % (Auto) Bates % (Auto) Eos % (Auto) Baso % (Auto) Absolute Neuts (auto) Absolute Lymphs (auto) Nucleated RBC % Differential Comment Sodium Potassium Chloride Carbon Dioxide Anion Gap BUN Creatinine Estim Creat Clear Calc Est GFR (MDRD) Af Amer Est GFR (MDRD) Non-Af BUN/Creatinine Ratio Glucose Calcium Total Creatine Kinase 82 Serum , Qual NEGATIVE Urine Color Urine Clarity Urine pH Ur Specific [place] Urine Protein Urine Glucose (UA) Urine Ketones Urine Occult Blood Urine Nitrite Urine Bilirubin Urine Urobilinogen Ur Leukocyte Esterase Urine RBC Urine WBC Ur Squamous Epith Cells Urine Bacteria Urine Mucus Urine Opiates Screen NEGATIVE Urine Methadone Screen NEGATIVE Ur Barbiturates Screen NEGATIVE Ur Phencyclidine Scrn NEGATIVE Ur Amphetamines Screen POSITIVE H U Methamphetamin-MDMA NEGATIVE U Benzodiazepines Scrn NEGATIVE Urine Cocaine Screen NEGATIVE U Cannabinoids Screen POSITIVE H Ur Drug Screen Comment Ethyl Alcohol 12/13/21 11:25 WBC RBC Hgb Hct MCV MCH MCHC RDW Std Deviation RDW Coeff of David Plt Count MPV Immature Gran % (Auto) Neut % (Auto) Lymph % (Auto) Bates % (Auto) Eos % (Auto) Baso % (Auto) Absolute Neuts (auto) Absolute Lymphs (auto) Nucleated RBC % Differential Comment Sodium Potassium Chloride Carbon Dioxide Anion Gap BUN Creatinine Estim Creat Clear Calc Est GFR (MDRD) Af Amer Est GFR (MDRD) Non-Af BUN/Creatinine Ratio Glucose Calcium Total Creatine Kinase Serum , Qual Urine Color Yellow Urine Clarity Clear Urine pH 6.5 Ur Specific [place] 1.010 Urine Protein Negative Urine Glucose (UA) Normal Urine Ketones Negative Urine Occult Blood 150 H Urine Nitrite Negative Urine Bilirubin Negative Urine Urobilinogen Normal Ur Leukocyte Esterase Negative Urine RBC 0 SEEN Urine WBC 0 SEEN Ur Squamous Epith Cells 0-5 SEEN Urine Bacteria 0 SEEN Urine Mucus 0 SEEN Urine Opiates Screen Urine Methadone Screen Ur Barbiturates Screen Ur Phencyclidine Scrn Ur Amphetamines Screen U Methamphetamin-MDMA U Benzodiazepines Scrn Urine Cocaine Screen U Cannabinoids Screen Ur Drug Screen Comment Ethyl Alcohol Radiography Diagnostic Testing: Clinical Impression(s) from Imaging Studies Chest X-Ray 12/13/21 11:20 IMPRESSION: Normal x-ray examination of the chest. Electronically Signed: Jose Villela MD at 12:18 EST Tel , Service support , Discharge Plan Triage Chief Complaint: Mental Health ED Provider: Skyler Walls Dx/Rx/DC Orders Prescriptions: No Action budesonide-formoterol 1 INHALER inhaler 2 puff inhalation BID RF: 0 omeprazole 20 MG capsule 40 mg PO DAILY Qty: 30 RF: 0 dicyclomine 10 MG capsule 10 mg PO TIDAC Qty: 20 RF: 0 amitriptyline 150 MG tablet 150 mg PO QHS RF: 0 clonazepam 0.25 MG tablet,disintegrating 0.25 mg PO BID RF: 0 gabapentin 800 MG tablet 800 mg PO TIDCM RF: 0 Primary Care Provider: Kim Nunes NP
--- NOTE | 2021-12-13 11:20 | RAD_ITS ---
STUDY: X-RAY CHEST REASON FOR EXAM: Female, 51 years old. altered mental status TECHNIQUE: Single AP portable view of the chest. COMPARISON: 02/07/2020 FINDINGS: The lungs are clear and expanded. There is no demonstrated pleural abnormality. Normal size heart. Normal mediastinum and lyubov. Normal visualized pulmonary arteries. Normal visualized aortic arch and descending thoracic aorta. Normal visualized thoracic spine. Normal visualized ribs, clavicles, and shoulders. There is no demonstrated abnormality of the visualized soft tissue structures of the upper abdomen. RAD/Chest 1 View (Portable) IMPRESSION: Normal x-ray examination of the chest. Electronically Signed: Jose Villela MD at 12:18 EST Tel , Service support ,
[2021-12-13 11:24] LABS: Absolute Lymphocyte Count 1.74 X10^3/uL (0.83-4.51); Absolute Neutrophil Count 7.8 X10^3/uL (2.0-7.7); Basophil# 0.06 X10^3/uL; Basophil% 0.6 % (0-1); Eosinophil# 0.07 X10^3/uL; Eosinophils% 0.7 % (0-5); Hematocrit 41.7 % (37-47); Lymphocyte # 1.74 X10^3/ul (0.83-4.51); Lymphocyte % 16.8 % (19-41); Mean Corp Hgb Conc 31.2 g/dL (32-36); Mean Corpuscular Hgb 27.9 pg (27.0-32.0); Mean Corpuscular Volume 89.5 fL (81-99); Monocyte# 0.58 X10^3/uL; Monocyte% 5.6 % (0-10); NRBC Flagged by Analyzer 0 % (0-5); Neutrophil # 7.83 X10^3/uL (2.7-7.7); Neutrophil % 75.8 % (47-70); Platelet Count 266 K/mm3 (150-450); RBC Distribution Width CV 13.9 % (11.6-14.6); RBC Distribution Width SD 45.4 fl (35.1-43.9); Red Blood Count 4.66 M/mm3 (4.2-5.4); White Blood Count 10.3 K/mm3 (4.4-11.0)
[2021-12-13 11:32] LABS: Internal QC Validated? YES +Cl - CLEAR BKGD; Pregnancy, Serum, hCG Quali. NEGATIVE Negative
[2021-12-13 11:34] LABS: Alcohol, Blood (Medical)-Serum < 3.0 mg/dL
[2021-12-13 11:36] LABS: Anion Gap 6 (5-15); BUN 8 mg/dL (7-18); BUN/Creat Ratio 7.5 RATIO (10-20); Calcium,Total 9.2 mg/dL (8.5-10.1); Chloride 106 mmol/L (98-107); Creatinine, Serum 1.06 mg/dL (0.55-1.02); EST Glomerular Filtration Rate 58 mL/min (>60); Est Glom Filt Rate - Afr Amer 71 mL/min (>60); Estimated Creatinine Clearance 57.77 ml/min; Glucose 95 mg/dL (74-106); Potassium 3.9 mmol/L (3.5-5.1); Sodium Level 139 mmol/L (136-145)
[2021-12-13 11:44] LABS: Differential Comment SCANNED
[2021-12-13 11:45] LABS: Amphetamine Urine VISTA POSITIVE (<1000 ng/mL); Barbiturate Urine VISTA NEGATIVE (< 200 ng/mL); Benzodiazepine Urine VISTA NEGATIVE (< 200 ng/mL); Cocaine Urine VISTA NEGATIVE (< 300 ng/mL); Ecstacy Urine VISTA NEGATIVE (< 500 ng/mL); Methadone Urine VISTA NEGATIVE (< 300 ng/mL); PCP Urine VISTA NEGATIVE (< 25 ng/mL); THC Urine VISTA POSITIVE (< 50 ng/mL); Vista UDS pH Range 6
[2021-12-13 11:54] LABS: Bacteria 0 SEEN /hpf (None Seen); Color, Urine Yellow (Yellow); Glucose, Dipstick Normal (Normal); Ketone-Dipstick Negative (Negative); Leukocyte Esterase-Dipstick Negative /ul (Negative); Mucous, Urine 0 SEEN /hpf (<or=2+); Nitrite-Dipstick Negative (Negative); Occult Blood-Urine 150 /ul (Negative); Protein-Dipstick Negative (Negative); Red Blood Cells-Urine 0 SEEN /hpf (0-5); Urine Bilirubin Dipstick Negative (Negative); Urine Clarity Clear (Clear); Urine Urobilinogen Normal (Normal); Urine pH 6.5 (5.0 - 8.0); White Blood Cells 0 SEEN /hpf (0-5)
[2021-12-13 11:56] LABS: Squamous Epithelial Cells - UA 0-5 SEEN /hpf (5-10)
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
--- NOTE | 2021-12-13 12:24 | CM.ED ---
SOCIAL WORK Referral faxed and called to [facility]. Pending review at this time. Patrick Cisneros, KALSOMINER, BUSINESS SOLUTIONS ANALYST
[2021-12-13] MEDS: LORazepam 1 MG Tablet PO (12:32)
--- NOTE | 2021-12-13 12:33 | ED.RN ---
Patient tearful, uncooperative stating you don't believe me. Patient states worms have been crawling out of her ears, nose, and skin. Denies drug abuse today however acknowledges meth use in days prior. Patient picks at skin and attempts to pull worms that she sees out of skin. No worms or any abnormality noted.
--- NOTE | 2021-12-13 13:42 | ED.RN ---
Pt continues to be tearful and uncooperative; denies suicidal ideation at this time. Continues to state you just don't believe me regarding the visual hallucination and feeling of worms.
--- NOTE | 2021-12-13 13:58 | CM.ED ---
SOCIAL WORK Call to [facility] to check on status of referral. Left message, awaiting call back. Patrick Cisneros, QUALITY CONTROL SYSTEMS MANAGER, ETHOLOGIST
--- NOTE | 2021-12-13 14:06 | EKG12_ITS ---
Test Reason : MEDICAL CLEARANCE Blood Pressure : / mmHG Vent. Rate : 090 BPM Atrial Rate : 090 BPM P-R Int : 154 ms QRS Dur : 084 ms QT Int : 374 ms P-R-T Axes : 054 041 016 degrees QTc Int : 457 ms Normal sinus rhythm Normal ECG Confirmed by LOC PELAYO, TASNEEM ([id number]), health editor SHAUNNA NARAYANAN ([id number]) on 12/14/2021 1:43:22 PM Referred By: BONITA Confirmed By:DAVID MONTERROSO MD
[2021-12-13 14:36] LABS: CPK Total, Creatine Kinase 82 U/L (26-192)
--- NOTE | 2021-12-13 15:11 | CM.ED ---
SOCIAL WORK EKG and CPK level obtained and faxed to [facility] per request. Patrick Cisneros, AUDIT LEAD, POLICE RADIO DISPATCHER
--- NOTE | 2021-12-13 16:05 | ED.RN ---
Pt offered meal tray, declined. Blankets given, patient resting at this time with lights off.
--- NOTE | 2021-12-13 16:26 | CM.ED ---
SOCIAL WORK Patient accepted to [facility] by Dr. Yu to the [facility] room 110B. Nurse to call report to [phone]. Field Service Analyst to set up transport. Patient's notified. Plan: [facility]. Patrick Cisneros, RN CLINICIAN, SCREEN OPERATOR
--- NOTE | 2021-12-13 16:27 | NURSING ---
ACCEPTED AT [facility] , [address] [place] NURSE TO NURSE [phone]
--- NOTE | 2021-12-13 16:36 | NURSING ---
CALLED [facility], ETA IS 2 HRS
--- NOTE | 2021-12-13 16:57 | ED.RN ---
Nursing report called to Carole at [facility] [phone]
--- NOTE | 2021-12-13 17:55 | ED.RN ---
pt taken a dinner meal tray. pt refused it
== END 2021-12-13 19:05 ==
PROVIDERS: Emergency Provider Student in an Organized Health Care Education/Training Program; PCP Nurse Practitioner Primary Care; Visit Provider Student in an Organized Health Care Education/Training Program
DX: F29 Unspecified psychosis not due to a substance or known physiological condition (principal); J44.9 Chronic obstructive pulmonary disease, unspecified; F15.10 Other stimulant abuse, uncomplicated; F32.A Depression, unspecified; F41.9 Anxiety disorder, unspecified; R20.2 Paresthesia of skin; F17.210 Nicotine dependence, cigarettes, uncomplicated; Z79.899 Other long term (current) drug therapy
CPT/HCPCS: G0480; 71045; 80048; 80307; 81001; 82077; 82550; 84703; 85025; 87426; 93005; 99284

== ENCOUNTER 2022-03-07 16:22 | Emergency (ER) | payer MEDICAID, SELFPAY ==
[2022-03-07 16:22] VITALS: BP 138/91; PULSE 100; RESP 15; TEMP 35.8; O2SAT 98; BMI 33.4
--- NOTE | 2022-03-07 16:39 | EKG12_ITS ---
Test Reason : Blood Pressure : / mmHG Vent. Rate : 082 BPM Atrial Rate : 082 BPM P-R Int : 128 ms QRS Dur : 082 ms QT Int : 346 ms P-R-T Axes : 070 050 037 degrees QTc Int : 404 ms Normal sinus rhythm Normal ECG Confirmed by KEVIN PELAYO, WILLIAM ([id number]), editor department NURIS ANN ([id number]) on 03/14/2022 10:26:34 AM Referred By: SANTINO Confirmed By:WILLIAM BROWN MD
[2022-03-07 17:02] LABS: Bacteria 0 SEEN /hpf (None Seen); Mucous, Urine 0 SEEN /hpf (<or=2+); Red Blood Cells-Urine 0 SEEN /hpf (0-5)
--- NOTE | 2022-03-07 17:06 | EX.ED.VIS.PS ---
HPI HPI - Psych History of Present Illness Chief Complaint: Headache Narrative Narrative: 51-year-old female with history of anxiety, depression, panic disorder, psychosis, methamphetamine abuse presenting with chief complaint of headache initially. She states that she was having a headache for 3 days and she believes it is due to black mold in her home. She states that she has not technically had some someone out to test to see if it is black mold but she believes it is. She believes her headache is because of this. She showed me a video on her phone of a house in poor repair that looked dirty but I could not identify black mold. She then stated that she had been having nausea as well, however she is not having any vomiting. She is concerned that she might have mold toes because her toes appear different than usual. She feels itchy all over and has tried Benadryl and this is not helping. She states she has a lot of bruises that she does not know where they have come from. While she does this she points to small red areas on her lower extremities which do not appear to be bruised. She then states that she has had a fever of 99.7 at home. She does not have a cough or shortness of breath. She does not have any urinary complaints. She denies drug and alcohol use. Patient does state that she has been off of her amitriptyline and gabapentin since her previous admission to a psychiatric facility for psychosis. She reports this has been about a month. She reports that she is going to sign up to see a new physician because her last physician discharged her from the practice for missing appointments. [facility] Medical History Anxiety COPD (chronic obstructive pulmonary disease) Depression Substance abuse Home Medications amitriptyline 75 mg PO QHS 07/14/18 [History Last Taken Unknown] clonazepam 0.25 mg PO BID 07/14/18 [History Last Taken Unknown] gabapentin 800 mg PO TIDCM 12/22/20 [History Last Taken Unknown] Senokot 2 tab PO/SL BID 03/07/22 [History Last Taken Unknown] amitriptyline 150 mg PO QHS #30 tab 03/07/22 [Rx Last Taken Unknown] aripiprazole 5 mg PO DAILY 03/07/22 [History Last Taken Unknown] aripiprazole [Abilify] 5 mg PO DAILY #30 tab 03/07/22 [Rx Last Taken Unknown] atorvastatin 5 mg PO QHS 03/07/22 [History Last Taken Unknown] fluticasone propionate 100 mcg OTHER BID 03/07/22 [History Last Taken Unknown] melatonin 6 mg PO QHS 03/07/22 [History Last Taken Unknown] omeprazole 20 mg PO DAILY 03/07/22 [History Last Taken Unknown] venlafaxine 37.5 mg PO DAILY #30 cap 03/07/22 [Rx Last Taken Unknown] venlafaxine 37.5 mg PO DAILY #30 cap 03/07/22 [Rx Last Taken Unknown] Allergy/AdvReac Type Severity Reaction Status Date / Time No Known Allergies Allergy Verified 03/07/22 16:25 Surgical History History of hysterectomy Social History Smoking Status: Current every day smoker tobacco type: cigarettes ROS ROS ED Constitutional Constitutional ED: Denies chills or fever(s) Eyes Eyes: Denies blurry vision or diplopia ENT ENT ED: Denies rhinorrhea or sore throat Cardiovascular Cardiovascular: Denies chest pain or palpitations Respiratory/Chest Respiratory/Chest: Denies cough or dyspnea Gastrointestinal Gastrointestinal: Reports nausea; Denies abdominal pain, diarrhea or vomiting Genitourinary Genitourinary ED: Denies dysuria or hematuria Musculoskeletal Musculoskeletal: Denies arthralgias or back pain Integumentary Reports other Details: Itching all over. Concern for mold under her toenails. Neurologic Neurologic: Reports headache(s); Denies paresthesias or weakness Psychiatric Psychiatric: Reports anxiety; Denies suicidal ideation or suicidal thoughts EXAM Physical Exam Const Vital Signs: 03/07/22 16:22 03/07/22 19:20 03/07/22 19:21 Temperature 96.4 F L Temperature Source Temporal Pulse Rate 100 100 71 Respiratory Rate 15 15 16 Blood Pressure 138/91 H 138/91 H 142/76 H Blood Pressure Mean 106 Pulse Ox 98 98 98 Oxygen Delivery Method Room Air Positive obese General Appearance ED: NAD; Negative for pallor Nutritional Appearance: obese HEENT Reports moist mucous membranes normocephalic and atraumatic Eyes PERRL and EOMs intact bilaterally Resp normal respiratory effort and clear to auscultation bilaterally Cardio Rate: regular rate Rhythm: regular rhythm GI non-tender and non-distended Palpation: soft Back/Spine no CVA tenderness Neuro oriented x3 and CN's II-XII intact bilaterally Sensorium / Orientation: alert Psych denies homicidal ideation and denies suicidal ideation Psych Narrative: Patient pointing to bruising on the skin which is not there. These are small 1 to 2 mm red areas on the legs. She points to mold under her toenails however her toes appear a little dirty but normal without fungal infection. No cellulitis or rash. Appearance: bizarre Attitude: paranoid Activity / Motor Behavior: psychomotor agitation Speech: excessive Mood & Affect: elevated mood Thought Process: tangential Thought Content: No suicidality, No homicidality and hallucination(s) Positive for visual Attention / Concentration: attention grossly impaired Insight: poor Judgement: poor Skin General Skin Exam: Negative for jaundice or pallor Rashes: no rashes MDM MDM MDM Narrative Medical decision making narrative: Patient presenting with headache. She has no focal neurologic deficits or lateralizing signs or symptoms. She has concern for history of psychosis and she is pointing of bruising which is not present. She thinks she has a fungal infection of her toes which is not present. Due to her history of psychosis and her being off her medications I did have social work see her. They did confirm her med list as well. They spoke with her who states that she has been doing very well outpatient. She is not doing any methamphetamines anymore. I did obtain screening lab work and her CBC and CMP are normal. Urinalysis negative. Urine drug screen positive for cannabinoids. EtOH negative. Negative hCG. Patient given Reglan and Benadryl and her headache improved. Patient would likely benefit from a refill on her medications. She is supposed to follow-up with counseling center outpatient. Since the feels comfortable with her coming home. I will refill her meds confirmed by her med list and discharge her home to follow-up. It does not appear that she is to be inpatient for her psychiatric problems today. He is given return cautions. Impression: 1. medication noncompliance 2. Headache 3. History of anxiety disorder 4. History of psychosis 5. Feared complaint not found Lab Data Attestation: I reviewed the patient's lab results. Labs: Laboratory Results - last 24 hr 03/07/22 03/07/22 03/07/22 16:55 16:55 17:00 WBC 8.5 RBC 4.69 Hgb 13.4 Hct 41.0 MCV 87.4 MCH 28.6 MCHC 32.7 RDW Std Deviation 44.4 H RDW Coeff of David 13.9 Plt Count 223 MPV 11.0 Immature Gran % (Auto) 0.600 Neut % (Auto) 55.4 Lymph % (Auto) 35.0 Leslie % (Auto) 6.3 Eos % (Auto) 2.0 Baso % (Auto) 0.7 Absolute Neuts (auto) 4.7 Absolute Lymphs (auto) 2.97 Nucleated RBC % 0 Platelet Estimate ADEQUATE Plt Morphology Comment LARGE RBC Morphology NORM C+C Sodium Potassium Chloride Carbon Dioxide Anion Gap BUN Creatinine Estim Creat Clear Calc Est GFR (MDRD) Af Amer Est GFR (MDRD) Non-Af BUN/Creatinine Ratio Glucose Calcium Total Bilirubin AST ALT Alkaline Phosphatase Total Protein Albumin Globulin Albumin/Globulin Ratio Serum , Qual Urine Color Yellow Urine Clarity Clear Urine pH 6.0 Ur Specific [place] 1.020 Urine Protein Negative Urine Glucose (UA) Normal Urine Ketones Negative Urine Occult Blood Negative Urine Nitrite Negative Urine Bilirubin Negative Urine Urobilinogen Normal Ur Leukocyte Esterase 25 H Urine RBC 0 SEEN Urine WBC 0-5 SEEN Ur Squamous Epith Cells 0-5 SEEN Urine Bacteria 0 SEEN Urine Mucus 0 SEEN Urine Opiates Screen NEGATIVE Urine Methadone Screen NEGATIVE Ur Barbiturates Screen NEGATIVE Ur Phencyclidine Scrn NEGATIVE Ur Amphetamines Screen NEGATIVE MDMA (Ecstasy) Screen NEGATIVE U Benzodiazepines Scrn NEGATIVE Urine Cocaine Screen NEGATIVE U Cannabinoids Screen POSITIVE H Ur Drug Screen Comment Ethyl Alcohol 03/07/22 03/07/22 03/07/22 17:00 17:00 17:00 WBC RBC Hgb Hct MCV MCH MCHC RDW Std Deviation RDW Coeff of David Plt Count MPV Immature Gran % (Auto) Neut % (Auto) Lymph % (Auto) Leslie % (Auto) Eos % (Auto) Baso % (Auto) Absolute Neuts (auto) Absolute Lymphs (auto) Nucleated RBC % Platelet Estimate Plt Morphology Comment RBC Morphology Sodium 137 Potassium 4.0 Chloride 107 Carbon Dioxide 26.0 Anion Gap 4 L BUN 14 Creatinine 0.78 Estim Creat Clear Calc 78.51 Est GFR (MDRD) Af Amer 101 Est GFR (MDRD) Non-Af 83 BUN/Creatinine Ratio 18.0 Glucose 92 Calcium 8.6 Total Bilirubin 0.30 AST 20 ALT 26 Alkaline Phosphatase 90 Total Protein 7.4 Albumin 3.8 Globulin 3.6 Albumin/Globulin Ratio 1.1 Serum , Qual NEGATIVE Urine Color Urine Clarity Urine pH Ur Specific [place] Urine Protein Urine Glucose (UA) Urine Ketones Urine Occult Blood Urine Nitrite Urine Bilirubin Urine Urobilinogen Ur Leukocyte Esterase Urine RBC Urine WBC Ur Squamous Epith Cells Urine Bacteria Urine Mucus Urine Opiates Screen Urine Methadone Screen Ur Barbiturates Screen Ur Phencyclidine Scrn Ur Amphetamines Screen MDMA (Ecstasy) Screen U Benzodiazepines Scrn Urine Cocaine Screen U Cannabinoids Screen Ur Drug Screen Comment Ethyl Alcohol 6.0 Discharge Plan Triage Chief Complaint: Headache ED Provider: Skyler Walls Dx/Rx/DC Orders Instructions: Understanding Headache Pain Prescriptions: New aripiprazole [Abilify] 5 mg tablet 5 mg PO DAILY Qty: 30 RF: 0 amitriptyline 150 mg tablet 150 mg PO QHS Qty: 30 RF: 0 venlafaxine 37.5 mg capsule,extended release 24hr 37.5 mg PO DAILY Qty: 30 RF: 0 Continued amitriptyline 150 MG tablet 75 mg PO QHS RF: 0 aripiprazole 5 mg tablet 5 mg PO DAILY RF: 0 venlafaxine 75 mg capsule,extended release 24hr 37.5 mg PO DAILY Qty: 30 RF: 0 No Action clonazepam 0.25 MG tablet,disintegrating 0.25 mg PO BID RF: 0 gabapentin 800 MG tablet 800 mg PO TIDCM RF: 0 omeprazole 20 MG capsule,delayed release(DR/EC) 20 mg PO DAILY RF: 0 atorvastatin 20 mg tablet 5 mg PO QHS RF: 0 melatonin 3 mg tablet 6 mg PO QHS RF: 0 Senokot 2 tab PO/SL BID RF: 0 fluticasone propionate 100 mcg OTHER BID RF: 0 Primary Care Provider: Care Physician,No Primary Referrals: Care Physician,No Primary [Primary Care Provider] - Disposition Disposition: Home, Self Care Discharge Date/Time: 03/07/22 19:21
[2022-03-07 17:11] LABS: Absolute Lymphocyte Count 2.97 X10^3/uL (0.83-4.51); Absolute Neutrophil Count 4.7 X10^3/uL (2.0-7.7); Basophil# 0.06 X10^3/uL; Basophil% 0.7 % (0-1); Eosinophil# 0.17 X10^3/uL; Hemoglobin 13.4 g/dL (12.0-15.0); Lymphocyte # 2.97 X10^3/ul (0.83-4.51); Mean Corp Hgb Conc 32.7 g/dL (32-36); Mean Corpuscular Hgb 28.6 pg (27.0-32.0); Mean Corpuscular Volume 87.4 fL (81-99); Monocyte# 0.53 X10^3/uL; Monocyte% 6.3 % (0-10); NRBC Flagged by Analyzer 0 % (0-5); Neutrophil % 55.4 % (47-70); POSITIVE COUNT YES; Platelet Count 223 K/mm3 (150-450); RBC Distribution Width CV 13.9 % (11.6-14.6); RBC Distribution Width SD 44.4 fl (35.1-43.9); Red Blood Count 4.69 M/mm3 (4.2-5.4); White Blood Count 8.5 K/mm3 (4.4-11.0)
[2022-03-07 17:14] LABS: Color, Urine Yellow (Yellow); Glucose, Dipstick Normal (Normal); Ketone-Dipstick Negative (Negative); Leukocyte Esterase-Dipstick 25 /ul (Negative); Nitrite-Dipstick Negative (Negative); Occult Blood-Urine Negative /ul (Negative); Protein-Dipstick Negative (Negative); Urine Bilirubin Dipstick Negative (Negative); Urine Clarity Clear (Clear); Urine Urobilinogen Normal (Normal)
[2022-03-07 17:20] LABS: Squamous Epithelial Cells - UA 0-5 SEEN /hpf (5-10); White Blood Cells 0-5 SEEN /hpf (0-5)
[2022-03-07] MEDS: DiphenhydrAMINE 50 MG/ML Syringe 25 MG IV (17:23)
[2022-03-07] MEDS: Metoclopramide 10 MG/2 ML Vial IV (17:23)
[2022-03-07 17:24] LABS: Amphetamine Urine VISTA NEGATIVE (<1000 ng/mL); Barbiturate Urine VISTA NEGATIVE (< 200 ng/mL); Benzodiazepine Urine VISTA NEGATIVE (< 200 ng/mL); Cocaine Urine VISTA NEGATIVE (< 300 ng/mL); Ecstacy Urine VISTA NEGATIVE (< 500 ng/mL); Methadone Urine VISTA NEGATIVE (< 300 ng/mL); PCP Urine VISTA NEGATIVE (< 25 ng/mL); THC Urine VISTA POSITIVE (< 50 ng/mL); Vista UDS pH Range 5
[2022-03-07 17:28] LABS: ALB/GLOB Ratio 1.1 RATIO (0.9-2.4); AST(SGOT) 20 U/L (15-37); Alanine Aminotransfer ALT/SGPT 26 U/L (13-56); Albumin, Serum 3.8 g/dL (3.2-5.0); Alkaline Phosphatase 90 U/L (45-117); Anion Gap 4 (5-15); BUN 14 mg/dL (7-18); Calcium,Total 8.6 mg/dL (8.5-10.1); Chloride 107 mmol/L (98-107); Creatinine, Serum 0.78 mg/dL (0.55-1.02); EST Glomerular Filtration Rate 83 mL/min (>60); Est Glom Filt Rate - Afr Amer 101 mL/min (>60); Estimated Creatinine Clearance 78.51 ml/min; Globulin 3.6 g/dL (2.2-4.2); Glucose 92 mg/dL (74-106); Protein, Total 7.4 g/dL (6.4-8.2); Sodium Level 137 mmol/L (136-145)
[2022-03-07 17:39] LABS: Internal QC Validated? YES +Cl - CLEAR BKGD; Pregnancy, Serum, hCG Quali. NEGATIVE Negative
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
[2022-03-07 17:47] LABS: Differential Indicated SCAN CRITERIA MET
[2022-03-07 17:49] LABS: Platelet Estimate ADEQUATE (ADEQ); Platelet Morphology LARGE; Red Cell Morphology NORM C+C NORMAL (NORM C&C)
[2022-03-07 19:20] VITALS: BP 138/91; PULSE 100; RESP 15; O2SAT 98
[2022-03-07 19:21] VITALS: BP 142/76; PULSE 71; RESP 16; O2SAT 98
== END 2022-03-07 19:21 | disposition home or self-care (01) ==
PROVIDERS: Emergency Provider Student in an Organized Health Care Education/Training Program; Visit Provider Student in an Organized Health Care Education/Training Program
DX: R51.9 Headache, unspecified (principal); F17.210 Nicotine dependence, cigarettes, uncomplicated; F41.9 Anxiety disorder, unspecified; F32.A Depression, unspecified; E66.9 Obesity, unspecified; Z91.14 Patient's other noncompliance with medication regimen; Z79.899 Other long term (current) drug therapy
CPT/HCPCS: 80053; 80307; 81001; 82077; 84703; 85025; 87811; 93005; 96374; 96375; 99282; A4216

== ENCOUNTER 2022-06-05 16:48 | Emergency (ER) | payer MEDICAID, SELFPAY ==
[2022-06-05] VITALS (7 sets, daily range): BP systolic 124–134; BP diastolic 74–82; PULSE 90–102; RESP 17–18; TEMP 36.7; O2SAT 95–98; BMI 88.4
--- NOTE | 2022-06-05 18:12 | EKG12_ITS ---
Test Reason : DYSRHYTHMIA Blood Pressure : / mmHG Vent. Rate : 099 BPM Atrial Rate : 099 BPM P-R Int : 124 ms QRS Dur : 082 ms QT Int : 330 ms P-R-T Axes : 055 049 041 degrees QTc Int : 423 ms Normal sinus rhythm Normal ECG Confirmed by LESIA PELAYO, ANNE ([id number]), editor & co founder SHAUNNA NARAYANAN ([id number]) on 06/09/2022 9:46:36 AM Referred By: NEREYDA Confirmed By:ANNE GRAF MD
--- NOTE | 2022-06-05 18:15 | RAD_ITS ---
STUDY: X-RAY CHEST REASON FOR EXAM: Female, 52 years old. SOB / SOA Cough, fever, wheezing TECHNIQUE: XR Chest 1 View COMPARISON: 12/13/2021 FINDINGS: There is no demonstrated pleural abnormality. Normal size heart. Normal mediastinum and lyubov. Normal visualized pulmonary arteries. Normal visualized aortic arch and descending thoracic aorta. There are diffuse degenerative changes of the visualized thoracic spine. There is degenerative osteoarthritis of the bilateral shoulders. There is no demonstrated abnormality of the visualized soft tissue structures of the upper abdomen. RAD/Chest 1 View (Portable) IMPRESSION: There are no acute findings. Electronically Signed: Clive Salguero MD at 18:30 EDT ,
[2022-06-05] MEDS: predniSONE 20 MG Tablet 60 MG PO (18:19)
[2022-06-05 18:22] LABS: Absolute Neutrophil Count 7.1 X10^3/uL (2.0-7.7); Basophil# 0.08 X10^3/uL; Basophil% 0.8 % (0-1); Eosinophil# 0.18 X10^3/uL; Eosinophils% 1.7 % (0-5); Hematocrit 35.8 % (37-47); Hemoglobin 10.7 g/dL (12.0-15.0); Lymphocyte % 24.5 % (19-41); Mean Corp Hgb Conc 29.9 g/dL (32-36); Mean Corpuscular Hgb 27.6 pg (27.0-32.0); Mean Corpuscular Volume 92.3 fL (81-99); Mean Platelet Vol. 10.6 fl (6.2-12.0); Monocyte# 0.53 X10^3/uL; NRBC Flagged by Analyzer 0 % (0-5); Neutrophil # 7.13 X10^3/uL (2.7-7.7); Platelet Count 249 K/mm3 (150-450); RBC Distribution Width CV 13.7 % (11.6-14.6); RBC Distribution Width SD 46.3 fl (35.1-43.9); Red Blood Count 3.88 M/mm3 (4.2-5.4); White Blood Count 10.6 K/mm3 (4.4-11.0)
[2022-06-05] MEDS: Ipratropium/Albuterol Sulfate 3 ML AMPUL.NEB INHALATION (18:28)
[2022-06-05] MEDS: Albuterol 2.5 MG/3 ML VIAL.NEB. INHALATION (18:38)
[2022-06-05 19:02] LABS: Lactic Acid 0.4 mmol/L (0.4-1.9)
--- NOTE | 2022-06-05 19:08 | CPS ---
x1 Albuterol given to pt. in ER as well at this time. Pt. politely refused additional breathing tx.'s at this time. Pt. was made aware that she has x2 Albuterol for her if needed during the duration of her ER stay.
--- NOTE | 2022-06-05 19:20 | EDS_ITS ---
HPI History of Present Illness Chief Complaint: Shortness of Breath [facility] Medical History Anxiety COPD (chronic obstructive pulmonary disease) Depression Substance abuse Home Medications amitriptyline 150 mg tablet 75 mg PO QHS 07/14/18 [History Last Taken Unknown] clonazepam 0.25 mg disintegrating tablet 0.25 mg PO BID 07/14/18 [History Last Taken Unknown] gabapentin 800 mg tablet 800 mg PO TIDCM 12/22/20 [History Last Taken Unknown] Senokot 2 tab PO/SL BID 03/07/22 [History Last Taken Unknown] amitriptyline 150 mg tablet 150 mg PO QHS #30 tabs 03/07/22 [Rx Last Taken Un known] aripiprazole 5 mg tablet 5 mg PO DAILY 03/07/22 [History Last Taken Unknown] aripiprazole 5 mg tablet (Abilify) 5 mg PO DAILY #30 tabs 03/07/22 [Rx Last Taken Unknown] atorvastatin 20 mg tablet 5 mg PO QHS 03/07/22 [History Last Taken Unknown] fluticasone propionate 100 mcg OTHER BID 03/07/22 [History Last Taken Unknown] melatonin 3 mg tablet 6 mg PO QHS 03/07/22 [History Last Taken Unknown] omeprazole 20 mg capsule,delayed release 20 mg PO DAILY 03/07/22 [History Last Taken Unknown] venlafaxine 37.5 mg capsule,extended release 24 hr 37.5 mg PO DAILY #30 caps 03/07/22 [Rx Last Taken Unknown] venlafaxine 75 mg capsule,extended release 24 hr 37.5 mg PO DAILY #30 caps 03/07/22 [Rx Last Taken Unknown] Allergy/AdvReac Type Severity Reaction Status Date / Time No Known Allergies Allergy Verified 06/05/22 16:55 Surgical History History of hysterectomy Social History (Updated 06/05/22 @ 20:[address] Jesus Connors MD) household members: none Smoking Status: Current every day smoker tobacco type: cigarettes substance use type: does not use EXAM Physical Exam Const Vital Signs: 06/05/22 16:49 06/05/22 17:34 06/05/22 18:30 Temperature 98.0 F Temperature Source Temporal Pulse Rate 102 H Respiratory Rate 18 Respiratory Effort Short of Breath Respiratory Depth Normal Respiratory Pattern Normal Blood Pressure 134/82 H Blood Pressure Mean 99 Pulse Ox 98 97 Oxygen Delivery Method Room Air Room Air 06/05/22 18:28 06/05/22 18:28 06/05/22 19:00 Temperature Temperature Source Pulse Rate 102 H Respiratory Rate 18 18 17 Respiratory Effort Normal Short of Breath Respiratory Depth Normal Respiratory Pattern Normal Normal Blood Pressure Blood Pressure Mean Pulse Ox 95 Oxygen Delivery Method Room Air Room Air 06/05/22 20:00 06/05/22 20:49 Temperature Temperature Source Pulse Rate 91 Respiratory Rate 18 17 Respiratory Effort Respiratory Depth Respiratory Pattern Blood Pressure Blood Pressure Mean Pulse Ox 96 95 Oxygen Delivery Method Room Air Room Air MDM MDM Lab Data Labs: Laboratory Results - last 24 hr 06/05/22 06/05/22 06/05/22 18:10 18:10 18:30 WBC 10.6 RBC 3.88 L Hgb 10.7 L Hct 35.8 L MCV 92.3 MCH 27.6 MCHC 29.9 L RDW Std Deviation 46.3 H RDW Coeff of David 13.7 Plt Count 249 MPV 10.6 Immature Gran % (Auto) 1.000 H Neut % (Auto) 67.0 Lymph % (Auto) 24.5 Martin % (Auto) 5.0 Eos % (Auto) 1.7 Baso % (Auto) 0.8 Absolute Neuts (auto) 7.1 Absolute Lymphs (auto) 2.60 Nucleated RBC % 0 Sodium 142 Potassium 4.4 Chloride 108 H Carbon Dioxide 28.0 Anion Gap 6 BUN 12 Creatinine 0.94 Estim Creat Clear Calc 59.23 Est GFR (MDRD) Af Amer 81 Est GFR (MDRD) Non-Af 67 BUN/Creatinine Ratio 12.8 Glucose 98 Lactic Acid 0.4 Calcium 8.9 Radiography Diagnostic Testing: Clinical Impression(s) from Imaging Studies Chest X-Ray 06/05/22 18:15 IMPRESSION: There are no acute findings. Electronically Signed: Clive Salguero MD at 18:30 EDT , Discharge Plan Triage Chief Complaint: Shortness of Breath ED Provider: Jesus Connors Dx/Rx/DC Orders Prescriptions: No Action amitriptyline 150 MG tablet 75 mg PO QHS clonazepam 0.25 MG tablet,disintegrating 0.25 mg PO BID gabapentin 800 MG tablet 800 mg PO TIDCM aripiprazole 5 mg tablet 5 mg PO DAILY omeprazole 20 MG capsule,delayed release(DR/EC) 20 mg PO DAILY atorvastatin 20 mg tablet 5 mg PO QHS melatonin 3 mg tablet 6 mg PO QHS Senokot 2 tab PO/SL BID fluticasone propionate 100 mcg OTHER BID venlafaxine 75 mg capsule,extended release 24hr 37.5 mg PO DAILY Qty: 30 0RF aripiprazole [Abilify] 5 mg tablet 5 mg PO DAILY Qty: 30 0RF amitriptyline 150 mg tablet 150 mg PO QHS Qty: 30 0RF venlafaxine 37.5 mg capsule,extended release 24hr 37.5 mg PO DAILY Qty: 30 0RF Primary Care Provider: Care Physician,No Primary Referrals: Care Physician,No Primary [Primary Care Provider] -
[2022-06-05 20:02] LABS: Anion Gap 6 (5-15); BUN 12 mg/dL (7-18); BUN/Creat Ratio 12.8 RATIO (10-20); Calcium,Total 8.9 mg/dL (8.5-10.1); Chloride 108 mmol/L (98-107); Creatinine, Serum 0.94 mg/dL (0.55-1.02); EST Glomerular Filtration Rate 67 mL/min (>60); Est Glom Filt Rate - Afr Amer 81 mL/min (>60); Estimated Creatinine Clearance 59.23 ml/min; Glucose 98 mg/dL (74-106); Potassium 4.4 mmol/L (3.5-5.1); Sodium Level 142 mmol/L (136-145)
--- NOTE | 2022-06-05 21:00 | ED.VIS.DYS ---
HPI History of Present Illness Chief Complaint: Shortness of Breath Informant: patient Onset/Context/Timing Onset: Days Context: sudden Timing: Continuous and Waxes and wanes Quality: Positive for Dyspnea on exertion and Wheezing; Negative for Orthopnea or PND Current Severity: Mild Maximum Severity: Moderate Worsened by: Exertion and Coughing; Not Worsened By Lying flat Relieved by: Nothing Associated Symptoms cough, rhinorrhea, post nasal drip, fever, sore throat and white sputum; Negative for ear pain, subjective, chills, sweats, clear sputum, yellow sputum or green sputum Chest Pain: Positive for None Narrative Narrative: Patient is a 52-year-old woman with history of COPD, GERD, cyclic vomiting and panic disorder. Patient has not been vaccinated. She has not had any ill contacts. She does give upper respiratory symptoms. She denies leg pain, swelling or discoloration. There is no history of VTE. PE Risk Factors: Negative for Cancer, OCP + Smoking + > 35, Recent immobilization, Recent surgery or Recent travel Prior similar symptoms: Yes (COPD) Recent Illness/Hospitalization: No PFSH PFSH Medical History Anxiety COPD (chronic obstructive pulmonary disease) Depression Substance abuse Home Medications amitriptyline 150 mg tablet 75 mg PO QHS 07/14/18 [History Last Taken Unknown] clonazepam 0.25 mg disintegrating tablet 0.25 mg PO BID 07/14/18 [History Last Taken Unknown] gabapentin 800 mg tablet 800 mg PO TIDCM 12/22/20 [History Last Taken Unknown] Senokot 2 tab PO/SL BID 03/07/22 [History Last Taken Unknown] amitriptyline 150 mg tablet 150 mg PO QHS #30 tabs 03/07/22 [Rx Last Taken Unknown] aripiprazole 5 mg tablet 5 mg PO DAILY 03/07/22 [History Last Taken Unknown] aripiprazole 5 mg tablet (Abilify) 5 mg PO DAILY #30 tabs 03/07/22 [Rx Last Taken Unknown] atorvastatin 20 mg tablet 5 mg PO QHS 03/07/22 [History Last Taken Unknown] fluticasone propionate 100 mcg OTHER BID 03/07/22 [History Last Taken Unknown] melatonin 3 mg tablet 6 mg PO QHS 03/07/22 [History Last Taken Unknown] omeprazole 20 mg capsule,delayed release 20 mg PO DAILY 03/07/22 [History Last Taken Unknown] venlafaxine 37.5 mg capsule,extended release 24 hr 37.5 mg PO DAILY #30 caps 03/07/22 [Rx Last Taken Unknown] venlafaxine 75 mg capsule,extended release 24 hr 37.5 mg PO DAILY #30 caps 03/07/22 [Rx Last Taken Unknown] prednisone 20 mg tablet 60 mg PO DAILY #15 TABLETS 06/05/22 [Rx Last Taken Unknown] Allergy/AdvReac Type Severity Reaction Status Date / Time No Known Allergies Allergy Verified 06/05/22 16:55 Surgical History History of hysterectomy Social History household members: none Smoking Status: Current every day smoker tobacco type: cigarettes substance use type: does not use ROS ROS ED Constitutional Constitutional ED: Reports fever(s); Denies chills, sweats or weight loss Eyes Eyes: Denies blurry vision, change in vision or diplopia ENT ENT ED: Reports rhinorrhea and sore throat; Denies ear pain Cardiovascular Cardiovascular: Denies chest pain, orthopnea, palpitations, paroxysmal nocturnal dyspnea or racing heartbeat Respiratory/Chest Respiratory/Chest: Reports cough, dyspnea, dyspnea on exertion and sputum; Denies orthopnea or paroxysmal nocturnal dyspnea Gastrointestinal Gastrointestinal: Denies abdominal pain, constipation, diarrhea, melena, nausea or vomiting Genitourinary Genitourinary ED: Denies dysuria, hematuria or urinary frequency Musculoskeletal Musculoskeletal: Denies arthralgias, back pain, myalgias or neck pain Integumentary Denies Abrasions or rash Neurologic Neurologic: Denies headache(s) or paresthesias Psychiatric Psychiatric: Reports anxiety Hematologic/Lymphatic Hematologic/Lymphatic: Denies easy bleeding, easy bruising or lymphadenopathy EXAM Physical Exam Const Vital Signs: 06/05/22 16:49 06/05/22 17:34 06/05/22 18:30 Temperature 98.0 F Temperature Source Temporal Pulse Rate 102 H Respiratory Rate 18 Respiratory Effort Short of Breath Respiratory Depth Normal Respiratory Pattern Normal Blood Pressure 134/82 H Blood Pressure Mean 99 Pulse Ox 98 97 Oxygen Delivery Method Room Air Room Air 06/05/22 18:28 06/05/22 18:28 06/05/22 19:00 Temperature Temperature Source Pulse Rate 102 H Respiratory Rate 18 18 17 Respiratory Effort Normal Short of Breath Respiratory Depth Normal Respiratory Pattern Normal Normal Blood Pressure Blood Pressure Mean Pulse Ox 95 Oxygen Delivery Method Room Air Room Air 06/05/22 20:00 06/05/22 20:49 Temperature Temperature Source Pulse Rate 91 Respiratory Rate 18 17 Respiratory Effort Respiratory Depth Respiratory Pattern Blood Pressure Blood Pressure Mean Pulse Ox 96 95 Oxygen Delivery Method Room Air Room Air Positive well nourished, well developed and obese; Negative for cachectic, contractures or unkempt Constitutional Narrative: Patient in mild respiratory distress. Is also slightly anxious. General Appearance ED: well developed; Negative for unkempt, cachectic, contractures, NAD or pallor Nutritional Appearance: obese; Negative for cachectic HEENT Reports TM's clear and moist mucous membranes HEENT Narrative: Nares patent. There is slight drainage noted. Uvula is midline. There is no erythema or exudate. Mucosas moist. atraumatic; Negative for tenderness Tympanic Membrane ED: Yes TM's clear Eyes PERRL and EOMs intact bilaterally General Eye ED: Negative for pale conjunctiva or scleral icterus Neck no lymphadenopathy, supple and no meningeal signs Neck Narrative: Treat he has been . There is no inspiratory expiratory stridor. Resp No normal respiratory effort and No clear to auscultation bilaterally Effort and Inspection: Negative for pain with movement Auscultation: rales right base, wheezes expiratory wheezes and scattered wheezes and diminished lung sounds Cardio regular rhythm, S1 normal heart sound, S2 normal heart sound and no murmurs Rate: tachycardic GI non-tender, non-distended and no masses Auscultation: normoactive bowel sounds Palpation: soft Back/Spine no CVA tenderness General Back: Negative for tenderness Extremity normal to inspection Extremity Narrative: There is no asymmetry, swelling, discoloration, leg vein distention, palpable cords or tenderness along the distribution of the deep venous system. General Extremety ED: Negative for edema or tenderness General Extremity: Negative for edema Neuro oriented x3, CN's II-XII intact bilaterally and no sensory deficits noted Taylor Coma Scale: document GCS findings Spontaneous Obeys Commands Oriented 15 Sensorium / Orientation: alert, oriented to person, oriented to place and oriented to time Speech: speech normal Sensory Exam: sensory level loss detected Motor Exam: strength 5/5 throughout Psych mental status grossly normal Appearance: Negative for unkempt Skin no wounds General Skin Exam: Negative for jaundice or pallor Lesions: no lesions Rashes: no rashes MDM MDM MDM Narrative Medical decision making narrative: Patient with COPD. Will obtain chest x-ray to evaluate for pneumonia. Clinically patient does not have a PE. EKG was obtained per nurse protocol since she was dyspneic. Blood work was obtained assess white count rule out anemia. Electrolyte panel to assess renal function and anion gap. Lab Data Labs: Laboratory Results - last 24 hr 06/05/22 06/05/22 06/05/22 18:10 18:10 18:30 WBC 10.6 RBC 3.88 L Hgb 10.7 L Hct 35.8 L MCV 92.3 MCH 27.6 MCHC 29.9 L RDW Std Deviation 46.3 H RDW Coeff of David 13.7 Plt Count 249 MPV 10.6 Immature Gran % (Auto) 1.000 H Neut % (Auto) 67.0 Lymph % (Auto) 24.5 [place] % (Auto) 5.0 Eos % (Auto) 1.7 Baso % (Auto) 0.8 Absolute Neuts (auto) 7.1 Absolute Lymphs (auto) 2.60 Nucleated RBC % 0 Sodium 142 Potassium 4.4 Chloride 108 H Carbon Dioxide 28.0 Anion Gap 6 BUN 12 Creatinine 0.94 Estim Creat Clear Calc 59.23 Est GFR (MDRD) Af Amer 81 Est GFR (MDRD) Non-Af 67 BUN/Creatinine Ratio 12.8 Glucose 98 Lactic Acid 0.4 Calcium 8.9 Radiography Chest X-Ray - ED: 1 View and Read by ED Physician (There is no acute process. Cardiac silhouette and size normal. Perihilar region normal. Parenchyma reveals minimal chronic changes. [place] structures are unremarkable. This was independently reviewed and interpreted by me.) Diagnostic Testing: Clinical Impression(s) from Imaging Studies Chest X-Ray 06/05/22 18:15 IMPRESSION: There are no acute findings. Electronically Signed: Clive Salguero MD at 18:30 EDT Reading Location ID and State: [facility] / [place] , Service support , EKG Initial EKG: Attestation: I personally reviewed and interpreted this EKG as follows: Interpretation: Sinus Rhythm (Sinus rhythm rate of 99. EKG is normal. NC interval is 124 ms. QS duration 82 ms. QT duration 330 ms. [place] is normal.) Treatment and Re-Evaluation Narrative: Patient was reassessed at 210. Patient is no longer wheezing. Will discharge with burst of prednisone. She was instructed follow-up with her doctor. Discharge Plan Triage Chief Complaint: Shortness of Breath ED Provider: Jesus Connors Dx/Rx/DC Orders Clinical Impression: Chronic obstructive pulmonary disease with acute exacerbation, Bronchitis Prescriptions: New prednisone 20 mg tablet 60 mg PO DAILY Qty: 15 0RF No Action amitriptyline 150 MG tablet 75 mg PO QHS clonazepam 0.25 MG tablet,disintegrating 0.25 mg PO BID gabapentin 800 MG tablet 800 mg PO TIDCM aripiprazole 5 mg tablet 5 mg PO DAILY omeprazole 20 MG capsule,delayed release(DR/EC) 20 mg PO DAILY atorvastatin 20 mg tablet 5 mg PO QHS melatonin 3 mg tablet 6 mg PO QHS Senokot 2 tab PO/SL BID fluticasone propionate 100 mcg OTHER BID venlafaxine 75 mg capsule,extended release 24hr 37.5 mg PO DAILY Qty: 30 0RF aripiprazole [Abilify] 5 mg tablet 5 mg PO DAILY Qty: 30 0RF amitriptyline 150 mg tablet 150 mg PO QHS Qty: 30 0RF venlafaxine 37.5 mg capsule,extended release 24hr 37.5 mg PO DAILY Qty: 30 0RF Primary Care Provider: Care Physician,No Primary Referrals: Care Physician,No Primary [Primary Care Provider] - Doctor,Your [STAFF PHYSICIAN] - 3-5 Days if not improving Disposition Disposition: Home, Self Care
== END 2022-06-05 21:14 | disposition home or self-care (01) ==
PROVIDERS: Emergency Provider Emergency Medicine; Visit Provider Emergency Medicine
DX: J44.1 Chronic obstructive pulmonary disease with (acute) exacerbation (principal); J40 Bronchitis, not specified as acute or chronic; F17.210 Nicotine dependence, cigarettes, uncomplicated; E66.9 Obesity, unspecified
CPT/HCPCS: G0463; 71045; 80048; 83605; 85025; 87811; 93005; 94640; 99251; 99284

== ENCOUNTER 2024-05-19 13:57 | Emergency (ER) | payer MEDICAID, SELFPAY ==
[2024-05-19 13:58] VITALS: BP 115/85; PULSE 109; RESP 20; TEMP 37; O2SAT 96; BMI 42.6
--- NOTE | 2024-05-19 14:09 | CT_ITS ---
STUDY: CT ABDOMEN AND PELVIS WITH CONTRAST REASON FOR EXAM: Female, 53 years old. Right flank pain/abdominal pain. RADIATION DOSAGE (If Supplied By Facility): CTDIvol = ( 14.98 ) mGy, DLP = ( 1153.74 ) mGycm TECHNIQUE: Transaxial images were obtained from the dome of the diaphragm to the symphysis pubis without oral contrast. IV 100mL Isovue-370 was administered. Sagittal and coronal images were reconstructed. Individualized dose optimization techniques were used for this CT. COMPARISON: Comparison is made with prior study July 14, 2018. FINDINGS: The visualized lung bases are unremarkable. The visualized portions of the heart are within normal limits. There is a 2.2 cm x 2.8 cm hypodense nodule in the peripheral lateral inferior aspect of the right lobe of liver with some enhancement along its border is suggestive of an hemangioma. This is unchanged. Normal gallbladder and extrahepatic biliary system. Normal spleen borderline splenomegaly.. Normal pancreas. Normal bilateral adrenal glands. Findings suggestive of a 2 mm calculus in the midportion of the right ureter as seen on axial image #63 and coronal image #73. Normal left kidney. Normal visualized stomach. Normal small intestine. There are scattered colonic diverticula consistent with diverticulosis. The appendix is visualized and appears normal. There is scattered atherosclerotic calcification of the abdominal aorta, without a demonstrated aneurysm. Normal inferior vena cava. Normal retroperitoneum. Normal urinary bladder. There is absence of the uterus consistent with a prior hysterectomy. Stable calcified phleboliths are seen in the pelvis. Normal abdominal wall. There are diffuse degenerative changes of the visualized lumbar spine. Loss of the normal lumbar lordosis. CT/Abdomen/Pelvis W IV Cont ONLY IMPRESSION: Stable hemangioma in the right lobe of the liver. Findings suggestive of a 2 mm calculus in the midportion of the right ureter. Electronically Signed: Myron Crump MD at 15:07 EDT ,
--- NOTE | 2024-05-19 14:10 | EDS_ITS ---
HPI History of Present Illness Chief Complaint: Flank Pain Detail of Chief Complaint: Right side pain Informant: patient Narrative Narrative: Patient presents with right-sided abdominal pain that she states started about a week ago. Patient states that she had a COPD flare last week and thought that maybe she pulled a muscle related to all the coughing she was doing. Patient now states the pain wraps around to the front of the abdomen. She has had 2 episodes of vomiting. First episode was around 2 AM and she vomited up what she had eaten and it was a little bit pink-tinged. She had a second episode of vomiting that elevated pink tinge to it. She denies fevers or chills or sweats. Food does not seem to affect the pain. She does describe urinary frequency but she has been drinking a lot of water. Pain worse with certain movements and at times worse with deep breath. Patient has had prior hysterectomy but still has her gallbladder and her appendix. No history of kidney stones. She has had diverticulitis in the past. [facility] Medical History Anxiety COPD (chronic obstructive pulmonary disease) Depression Substance abuse Home Medications ?Medication ?Instructions ?Recorded ?Last Taken ?Type amitriptyline 150 mg tablet 75 mg PO QHS 07/14/18 Unknown History clonazepam 0.25 mg disintegrating 0.25 mg PO BID 07/14/18 Unknown History tablet gabapentin 800 mg tablet 800 mg PO TIDCM 12/22/20 Unknown History Senokot 2 tab PO/SL BID 03/07/22 Unknown History amitriptyline 150 mg tablet 150 mg PO QHS #30 tabs 03/07/22 Unknown Rx aripiprazole 5 mg tablet 5 mg PO DAILY 03/07/22 Unknown History aripiprazole 5 mg tablet (Abilify) 5 mg PO DAILY #30 tabs 03/07/22 Unknown Rx atorvastatin 20 mg tablet 5 mg PO QHS 03/07/22 Unknown History fluticasone propionate 100 mcg OTHER BID 03/07/22 Unknown History melatonin 3 mg tablet 6 mg PO QHS 03/07/22 Unknown History omeprazole 20 mg capsule,delayed 20 mg PO DAILY 03/07/22 Unknown History release venlafaxine 37.5 mg 37.5 mg PO DAILY #30 caps 03/07/22 Unknown Rx capsule,extended release 24 hr venlafaxine 75 mg capsule,extended 37.5 mg (1/2 x 75 mg) PO DAILY #30 03/07/22 Unknown Rx release 24 hr caps prednisone 20 mg tablet 60 mg (3 x 20 mg) PO DAILY #15 06/05/22 Unknown Rx TABLETS hydrocodone-acetaminophen 5-325mg 1 tab PO Q4H PRN PRN Pain 2 days 05/19/24 Unknown Rx 5mg-325mg #14 TABLETS ondansetron 4 mg disintegrating 4 mg PO Q8H PRN PRN Nausea #10 tabs 05/19/24 Unknown Rx tablet Allergy/AdvReac Type Severity Reaction Status Date / Time No Known Allergies Allergy Verified 05/19/24 13:58 Surgical History History of hysterectomy Social History household members: none Smoking Status: Former smoker substance use type: does not use ROS ROS ED Review of Systems ROS Unobtainable: other Constitutional Constitutional ED: Reports lethargy; Denies chills, fever(s), sweats or weight loss Eyes Eyes: Denies blurry vision, change in vision or diplopia ENT ENT ED: Denies rhinorrhea or sore throat Cardiovascular Cardiovascular: Denies chest pain, orthopnea or racing heartbeat Respiratory/Chest Respiratory/Chest: Reports cough; Denies dyspnea, dyspnea on exertion, orthopnea or sputum Gastrointestinal Gastrointestinal: Reports abdominal pain, nausea and vomiting; Denies diarrhea Genitourinary Genitourinary ED: Denies dysuria, hematuria or urinary frequency Musculoskeletal Musculoskeletal: Reports back pain; Denies arthralgias, myalgias or neck pain Integumentary Denies abscess, Abrasions or rash Neurologic Neurologic: Denies headache(s) or weakness Psychiatric Psychiatric: Denies anxiety, depression or suicidal thoughts Endocrine Endocrinology: Denies polydipsia, polyphagia or polyuria Hematologic/Lymphatic Hematologic/Lymphatic: Denies easy bleeding, easy bruising or lymphadenopathy Allergic/Immunologic Allergic/Immunologic ED: Denies mouth swelling, tongue swelling or urticaria EXAM Physical Exam Const Vital Signs: 05/19/24 13:58 Temperature 98.6 F Temperature Source Temporal Pulse Rate 109 H Respiratory Rate 20 H Blood Pressure 115/85 H Blood Pressure Mean 95 Pulse Ox 96 Oxygen Delivery Method Room Air Positive well nourished and well developed General Appearance ED: well developed and NAD HEENT Reports TM's clear and moist mucous membranes normocephalic and atraumatic; Negative for trauma or tenderness Tympanic Membrane ED: Yes TM's clear Eyes PERRL and EOMs intact bilaterally General Eye ED: Negative for pale conjunctiva or scleral icterus Neck no lymphadenopathy, supple and no JVD General: Negative for tenderness Chest Wall inspection of chest normal and palpation of chest normal Chest: Negative for tenderness Resp normal respiratory effort and clear to auscultation bilaterally Effort and Inspection: Negative for respiratory distress or pain with movement Auscultation: Negative for rhonchi, wheezes or diminished lung sounds Cardio regular rate, regular rhythm, S1 normal heart sound, S2 normal heart sound and no murmurs Peripheral Pulses: pulses 2+ throughout GI normal to inspection, nondistended, normoactive bowel sounds, soft to palpation, non-distended and no masses GI Narrative: Mild tenderness palpation over the right upper quadrant with guarding. She also has tenderness to the right lower quadrant with mild guarding. No rebound, rigidity, or pineal signs. No mass palpated. Back/Spine no CVA tenderness and no thoracic nor lumbar tenderness Back/Spine Narrative: Mild CVA tenderness on the right. Extremity normal to inspection General Extremety ED: Negative for edema General Extremity: Negative for edema Neuro oriented x3, CN's II-XII intact bilaterally, no sensory deficits noted and gait normal Sensorium / Orientation: awake, alert, oriented to person, oriented to place and oriented to time Motor Exam: strength 5/5 throughout and strength abnormal Psych mental status grossly normal Skin no rashes or lesions noted and no wounds MDM MDM MDM Narrative Medical decision making narrative: Patient presents with right-sided flank/abdomen pain that started a week ago. She has had nausea and vomiting x 2. Food does not seem to make the pain worse. No urinary symptoms. In the differential would be gallbladder disease versus kidney stone or UTI or other acute intra-abdominal process. Patient states the pain is not in her lungs but definitely in the abdomen. IV line established. She was medicated with Toradol and morphine and Zofran. CBC with differential white count 10.5 with hemoglobin 11 and platelet count of 381. Chemistries unremarkable. LFTs were normal. Lipase normal. Urinalysis essentially unremarkable. CT scan of the abdomen pelvis with IV contrast obtained showed a right-sided 2 mm ureteral stone mid ureter. Discussed results with patient. I did medicate her again with Dilaudid 1 mg IV as she continued to have pain but she states initial medication took the edge off. She will be given urine strainers and a prescription for [place] as well as Zofran and urine strainers. Will hold off on anti-inflammatories such as Aleve due to the fact that she has had some icepick gastritis and mild hematemesis which may be Damaris-Mercedes tear type situation. Patient advised to return if worsening pain, fever, persistent vomiting, hematemesis, or condition should worsen anyway. She is advised to continue with her antiacid medications the omeprazole. Lab Data Attestation: I reviewed the patient's lab results. Labs: Laboratory Results - last 24 hr 05/19/24 05/19/24 14:20 14:30 WBC 10.5 RBC 4.55 Hgb 11.4 L Hct 37.9 MCV 83.3 MCH 25.1 L MCHC 30.1 L RDW Std Deviation 43.2 RDW Coeff of David 14.3 Plt Count 381 MPV 10.7 Immature Gran % (Auto) 1.000 H Neut % (Auto) 60.2 Lymph % (Auto) 29.4 [place] % (Auto) 7.4 Eos % (Auto) 1.4 Baso % (Auto) 0.6 Absolute Neuts (auto) 6.3 Absolute Lymphs (auto) 3.09 Nucleated RBC % 0 Sodium 141 Potassium 3.7 Chloride 106 Carbon Dioxide 30.0 Anion Gap 5 BUN 9 Creatinine 1.01 Estim Creat Clear Calc 78.12 Est GFR (MDRD) Af Amer 74 Est GFR (MDRD) Non-Af 61 BUN/Creatinine Ratio 8.9 L Glucose 78 Calcium 8.8 Total Bilirubin 0.30 AST 18 ALT 16 Alkaline Phosphatase 113 Total Protein 7.2 Albumin 3.2 Globulin 4.0 Albumin/Globulin Ratio 0.8 L Lipase 18 Urine Color Straw Urine Clarity Sl. Cloudy Urine pH 7.0 Ur Specific [place] 1.010 Urine Protein Negative Urine Glucose (UA) Normal Urine Ketones Negative Urine Occult Blood Negative Urine Nitrite Negative Urine Bilirubin Negative Urine Urobilinogen Normal Ur Leukocyte Esterase 100 H Urine RBC 0-5 SEEN Urine WBC 0-5 SEEN Ur Squamous Epith Cells 0-5 SEEN Urine Bacteria 2+ Urine Mucus 0 SEEN Radiography Diagnostic Testing: Clinical Impression(s) from Imaging Studies Abdomen/Pelvis CT 05/19/24 14:09 IMPRESSION: Stable hemangioma in the right lobe of the liver. Findings suggestive of a 2 mm calculus in the midportion of the right ureter. Electronically Signed: Myron Crump MD at 15:07 EDT , Discharge Plan Triage Chief Complaint: Flank Pain Other Complaint: Cough ED Provider: Zoila Eason Dx/Rx/DC Orders Clinical Impression: Urolithiasis Instructions: ED Kidney Stone with Pain Prescriptions: New hydrocodone-acetaminophen 5-325 mg tablet 1 tab PO Q4H PRN PRN (Reason: Pain) 2 Days Qty: 14 0RF ondansetron 4 mg tablet,disintegrating 4 mg PO Q8H PRN PRN (Reason: Nausea) Qty: 10 0RF No Action amitriptyline 150 MG tablet 75 mg PO QHS clonazepam 0.25 MG tablet,disintegrating 0.25 mg PO BID gabapentin 800 MG tablet 800 mg PO TIDCM aripiprazole 5 mg tablet 5 mg PO DAILY omeprazole 20 MG capsule,delayed release(DR/EC) 20 mg PO DAILY atorvastatin 20 mg tablet 5 mg PO QHS melatonin 3 mg tablet 6 mg PO QHS Senokot 2 tab PO/SL BID fluticasone propionate 100 mcg OTHER BID venlafaxine 75 mg capsule,extended release 24hr 37.5 mg PO DAILY Qty: 30 0RF aripiprazole [Abilify] 5 mg tablet 5 mg PO DAILY Qty: 30 0RF amitriptyline 150 mg tablet 150 mg PO QHS Qty: 30 0RF venlafaxine 37.5 mg capsule,extended release 24hr 37.5 mg PO DAILY Qty: 30 0RF prednisone 20 mg tablet 60 mg PO DAILY Qty: 15 0RF Primary Care Provider: Preston Villalta Referrals: Alina Zhang MD [Med Staff - Active Staff] - 3-5 Days Care Physician,No Primary [Non-Staff] - Print Language: Lao Disposition Disposition: Home, Self Care
[2024-05-19] MEDS: Ondansetron 4 MG/2 ML Vial IV (14:19)
[2024-05-19] MEDS: Morphine 4 MG/ML Syringe IV (14:20)
[2024-05-19] MEDS: Ketorolac 15 MG/ML Vial IV (14:20)
[2024-05-19] MEDS: 0.9% Normal Saline (1000mL) 1,000 ML 125 ML IV (14:22)
[2024-05-19 14:37] LABS: Mucous, Urine 0 SEEN /hpf (<or=2+)
[2024-05-19 14:39] LABS: Color, Urine Straw (Yellow); Glucose, Dipstick Normal (Normal); Ketone-Dipstick Negative (Negative); Leukocyte Esterase-Dipstick 100 /ul (Negative); Nitrite-Dipstick Negative (Negative); Occult Blood-Urine Negative /ul (Negative); Protein-Dipstick Negative (Negative); Urine Bilirubin Dipstick Negative (Negative); Urine Clarity Sl. Cloudy (Clear); Urine Urobilinogen Normal (Normal)
[2024-05-19 14:40] LABS: Absolute Lymphocyte Count 3.09 X10^3/uL (0.83-4.51); Absolute Neutrophil Count 6.3 X10^3/uL (2.0-7.7); Basophil# 0.06 X10^3/uL; Basophil% 0.6 % (0-1); Eosinophil# 0.15 X10^3/uL; Eosinophils% 1.4 % (0-5); Hematocrit 37.9 % (37-47); Hemoglobin 11.4 g/dL (12.0-15.0); Lymphocyte # 3.09 X10^3/ul (0.83-4.51); Lymphocyte % 29.4 % (19-41); Mean Corp Hgb Conc 30.1 g/dL (32-36); Mean Corpuscular Hgb 25.1 pg (27.0-32.0); Mean Corpuscular Volume 83.3 fL (81-99); Mean Platelet Vol. 10.7 fl (6.2-12.0); Monocyte# 0.78 X10^3/uL; Monocyte% 7.4 % (0-10); NRBC Flagged by Analyzer 0 % (0-5); Neutrophil # 6.33 X10^3/uL (2.7-7.7); Neutrophil % 60.2 % (47-70); Platelet Count 381 K/mm3 (150-450); RBC Distribution Width CV 14.3 % (11.6-14.6); RBC Distribution Width SD 43.2 fl (35.1-43.9); Red Blood Count 4.55 M/mm3 (4.2-5.4); White Blood Count 10.5 K/mm3 (4.4-11.0)
[2024-05-19 14:49] LABS: Bacteria 2+ /hpf (None Seen); Squamous Epithelial Cells - UA 0-5 SEEN /hpf (5-10)
[2024-05-19 14:50] LABS: Red Blood Cells-Urine 0-5 SEEN /hpf (0-5); White Blood Cells 0-5 SEEN /hpf (0-5)
[2024-05-19 14:56] LABS: ALB/GLOB Ratio 0.8 RATIO (0.9-2.4); AST(SGOT) 18 U/L (15-37); Alanine Aminotransfer ALT/SGPT 16 U/L (13-56); Albumin, Serum 3.2 g/dL (3.2-5.0); Alkaline Phosphatase 113 U/L (45-117); Anion Gap 5 (5-15); BUN 9 mg/dL (7-18); BUN/Creat Ratio 8.9 RATIO (10-20); Calcium,Total 8.8 mg/dL (8.5-10.1); Chloride 106 mmol/L (98-107); Creatinine, Serum 1.01 mg/dL (0.55-1.02); EST Glomerular Filtration Rate 61 mL/min (>60); Est Glom Filt Rate - Afr Amer 74 mL/min (>60); Estimated Creatinine Clearance 78.12 ml/min; Glucose 78 mg/dL (74-106); Lipase 18 U/L (13-75); Potassium 3.7 mmol/L (3.5-5.1); Protein, Total 7.2 g/dL (6.4-8.2); Sodium Level 141 mmol/L (136-145)
[2024-05-19] MEDS: HYDROmorphone 1 MG/ML Syringe IV (15:19)
[2024-05-19 15:28] VITALS: BP 138/102; PULSE 80; RESP 16; TEMP 36.2; O2SAT 94
== END 2024-05-19 15:31 | disposition home or self-care (01) ==
PROVIDERS: Emergency Provider Emergency Medicine; PCP Internal Medicine; Visit Provider Emergency Medicine
DX: N20.9 Urinary calculus, unspecified (principal); J44.9 Chronic obstructive pulmonary disease, unspecified; Z87.891 Personal history of nicotine dependence
CPT/HCPCS: 74177; 80053; 81001; 83690; 85025; 96374; 96375; 99284; J7030; Q9967; J2405

== ENCOUNTER 2024-06-20 16:41 | Emergency (ER) | payer MEDICAID, SELFPAY ==
[2024-06-20 16:41] VITALS: BP 98/61; PULSE 106; RESP 18; TEMP 37.2; O2SAT 98; BMI 39.0
--- NOTE | 2024-06-20 17:06 | CT_ITS ---
EXAM: CT ABDOMEN AND PELVIS WITHOUT INTRAVENOUS CONTRAST CLINICAL INDICATION: flank pain TECHNIQUE: Helically acquired images were obtained of the abdomen and pelvis without intravenous contrast. This CT exam was performed using one or more of the following dose reduction techniques: automated exposure control, adjustment of the mA and/or kV according to patient size, and/or use of iterative reconstruction technique. COMPARISON: 05/19/2024 FINDINGS: LOWER THORAX: There is a small hiatal hernia. Lung bases are clear. No cardiomegaly. No significant pericardial effusion. ABDOMEN: LIVER: There is a low-density lesion within the inferior right lobe of the liver which is stable from the reference exam compatible with a hemangioma. GALLBLADDER AND BILE DUCTS: Unremarkable. No calcified gallstones. No gallbladder distention or wall edema. No intra- or extrahepatic biliary ductal dilation. PANCREAS: Unremarkable. No focal cystic mass. SPLEEN: Unremarkable. Normal size without focal cystic or solid mass. ADRENALS: Unremarkable. No nodules. KIDNEYS AND URETERS: Unremarkable. Normal renal size and position. No hydronephrosis. STOMACH AND BOWEL: Unremarkable. No stomach or bowel distention. No focal inflammatory change. PELVIS: APPENDIX: No evidence of acute appendicitis. BLADDER: Unremarkable. REPRODUCTIVE: Unremarkable as visualized. No mass. ABDOMEN and PELVIS: INTRAPERITONEAL SPACE: Unremarkable. No ascites or other fluid collection. No free air. BONES/JOINTS: Unremarkable. No suspicious lytic or blastic abnormality. SOFT TISSUES: Unremarkable. No discrete abdominal or pelvic wall hernia. VASCULATURE: Unremarkable. Abdominal aorta is non-dilated. LYMPH NODES: Unremarkable. No enlarged lymph nodes. CT/Abdomen/Pelvis without Cont IMPRESSION: No acute abnormalities in the abdomen or pelvis. Previously described 2 mm calcification in the right ureter is actually a phlebolith within a vein. There are no ureteral stones or obstruction identified. Electronically Signed: Tha Dumas MD at 18:13 EDT ,
--- NOTE | 2024-06-20 17:08 | EDS_ITS ---
HPI History of Present Illness Chief Complaint: Flank Pain Informant: patient Narrative Narrative: Patient presents secondary to recurrent flank pain. She was seen on May 19 and diagnosed with a 2 mm stone in the mid right ureter. She followed up with urology (Dr. Rose at [facility]). Patient states that she had been doing well until but 3 days ago when pain recurred. [facility] Medical History Substance abuse Anxiety Depression COPD (chronic obstructive pulmonary disease) Home Medications ?Medication ?Instructions ?Recorded ?Last Taken ?Type gabapentin 800 mg tablet 400 mg PO PRN pain 12/22/20 Unknown History Senokot 2 tab PO/SL BID 03/07/22 Unknown History amitriptyline 150 mg tablet 150 mg PO QHS #30 tabs 03/07/22 Unknown Rx atorvastatin 20 mg tablet 5 mg PO QHS 03/07/22 Unknown History melatonin 3 mg tablet 6 mg PO QHS 03/07/22 Unknown History albuterol sulfate 90 mcg/actuation 2 puff inhalation Q4H PRN PRN 06/20/24 Unknown History aerosol inhaler wheezing budesonide-formoterol HFA 160 2 puff inhalation BID 06/20/24 Unknown History mcg-4.5 mcg/actuation aerosol inhaler (Symbicort) cyclobenzaprine 10 mg tablet 10 mg PO BID PRN PRN muscle spasm 06/20/24 Unknown History hydrocodone-acetaminophen 5-325mg 1 tab PO Q6H PRN PRN Pain 3 days 06/20/24 Unknown Rx 5mg-325mg #10 TABLETS pantoprazole 40 mg tablet,delayed 40 mg PO DAILY 06/20/24 Unknown History release promethazine 25 mg tablet 25 mg PO Q6H PRN PRN nausea and 06/20/24 Unknown History vomiting promethazine 25 mg tablet 25 mg PO TID PRN nausea and 06/20/24 Unknown Rx vomiting #14 tabs tamsulosin 0.4 mg capsule 0.4 mg PO QHS 06/20/24 Unknown History venlafaxine 150 mg 150 mg PO DAILY 06/20/24 Unknown History capsule,extended release 24 hr Allergy/AdvReac Type Severity Reaction Status Date / Time No Known Allergies Allergy Verified 05/19/24 13:58 Surgical History History of hysterectomy Social History household members: none Smoking Status: Current every day smoker tobacco type: cigarettes and e- cigarettes substance use type: does not use ROS ROS ED Constitutional Constitutional ED: Denies chills or fever(s) Eyes Eyes: Denies discharge from eye(s) ENT ENT ED: Denies discharge from eye(s), rhinorrhea or sore throat Cardiovascular Cardiovascular: Denies chest pain or palpitations Respiratory/Chest Respiratory/Chest: Denies cough or dyspnea Gastrointestinal Gastrointestinal: Reports abdominal pain and nausea; Denies diarrhea or vomiting Genitourinary Genitourinary ED: Denies dysuria Musculoskeletal Musculoskeletal: Reports back pain; Denies extremity pain Integumentary Denies Abrasions or rash Neurologic Neurologic: Denies headache(s) or weakness Psychiatric Psychiatric: Denies anxiety or depression Allergic/Immunologic Allergic/Immunologic ED: Denies lip swelling or urticaria EXAM Physical Exam Const Vital Signs: 06/20/24 16:41 06/20/24 17:35 06/20/24 19:00 Temperature 98.9 F Temperature Source Temporal Pulse Rate 106 H 92 Respiratory Rate 18 18 Blood Pressure 98/61 126/84 H 106/51 L Blood Pressure Mean 73 98 69 Pulse Ox 98 97 Oxygen Delivery Method Room Air Room Air 06/20/24 19:38 Temperature 97.7 F L Temperature Source Pulse Rate 92 Respiratory Rate 18 Blood Pressure 116/86 H Blood Pressure Mean 96 Pulse Ox 93 Oxygen Delivery Method Positive well nourished and well developed General Appearance ED: well developed HEENT Reports moist mucous membranes Eyes EOMs intact bilaterally Chest Wall inspection of chest normal and palpation of chest normal Resp normal respiratory effort and clear to auscultation bilaterally Cardio regular rate and regular rhythm GI GI Narrative: Abdomen soft with no focal tenderness to palpation. Extremity normal to inspection Neuro oriented x3 and no sensory deficits noted Motor Exam: strength 5/5 throughout Psych mental status grossly normal Skin no rashes or lesions noted MDM MDM MDM Narrative Medical decision making narrative: IV line be established. Patient given Toradol, morphine, Zofran, and IV fluids. Labwork obtained to evaluate for leukocytosis, anemia, and electrolyte derangement. Urinalysis obtained to evaluate for infection/hematuria. CT flank obtained to evaluate continued ureteral stone versus new stone versus other etiology. History & Record Review Discussion w/independent historian: Patient Lab Data Attestation: I reviewed the patient's lab results. Labs: Laboratory Results - last 24 hr 06/20/24 06/20/24 17:14 19:35 WBC 10.6 RBC 4.29 Hgb 10.7 L Hct 35.5 L MCV 82.8 MCH 24.9 L MCHC 30.1 L RDW Std Deviation 45.9 H RDW Coeff of David 15.1 H Plt Count 370 MPV 10.5 Immature Gran % (Auto) 0.400 Neut % (Auto) 69.5 Lymph % (Auto) 22.7 [place] % (Auto) 5.4 Eos % (Auto) 1.3 Baso % (Auto) 0.7 Absolute Neuts (auto) 7.4 Absolute Lymphs (auto) 2.40 Nucleated RBC % 0 Sodium 138 Potassium 4.1 Chloride 104 Carbon Dioxide 27.0 Anion Gap 7 BUN 11 Creatinine 1.09 H Estim Creat Clear Calc 68.11 Est GFR (MDRD) Af Amer 68 Est GFR (MDRD) Non-Af 56 L BUN/Creatinine Ratio 10.1 Glucose 94 Calcium 8.7 Urine Color Straw Yellow Urine Clarity Cloudy Clear Urine pH 6.0 6.0 Ur Specific [place] 1.010 1.005 Urine Protein 15 H Negative Urine Glucose (UA) Normal Normal Urine Ketones Negative Negative Urine Occult Blood 10 H Negative Urine Nitrite Negative Negative Urine Bilirubin Negative Negative Urine Urobilinogen Normal Normal Ur Leukocyte Esterase 500 H 500 H Urine RBC 0 SEEN 0 SEEN Urine WBC 25-50 SEEN 0-5 SEEN Ur Squamous Epith Cells 25-50 SEEN 0-5 SEEN Urine Bacteria 3+ 2+ Urine Mucus 0 SEEN 0 SEEN Radiography Diagnostic Testing: Clinical Impression(s) from Imaging Studies Abdomen/Pelvis CT 06/20/24 17:06 IMPRESSION: No acute abnormalities in the abdomen or pelvis. Previously described 2 mm calcification in the right ureter is actually a phlebolith within a vein. There are no ureteral stones or obstruction identified. Electronically Signed: Tha Dumas MD at 18:13 EDT , Treatment and Re-Evaluation :: CBC was normal white count at 10.6 with 69% neutrophils. Hemoglobin is 10.7, stable from prior visits. Chemistry studies are unremarkable. Initial urinalysis reveals 3+ bacteria with 25-50 epithelial cells and 25-50 white cells. No nitrites noted. Because this is not a clean sample and patient did have to urinate again, we recollected the urine. Repeat sample shows 2+ bacteria with 0-5 white cells, 0-5 epithelial cells, no nitrites. CT scan of the abdomen pelvis reveals no acute abnormalities. The previously described 2 mm calcification in the right ureter is actually a phlebolith within the vein. There is no ureteral stone or obstruction identified. Patient discussed urinary urgency and feeling as if her bladder was not emptying completely. Bladder scan was performed both before and after she urinated. Initial bladder scan revealed approximately 375 cc of urine. Postvoid revealed 213 cc of urine remaining. In light of this a Spivey catheter is placed. 400 cc of urine is drained when Spivey catheter is placed. I believe patient likely has been having bladder spasms secondary to retention. She has 2+ bacteria but no other signs of infection. She has not had dysuria. She has no fever or white count. I will send her urine for a culture but will not treat with antibiotics at this time. Patient expressed dissatisfaction with her previous urology visit. I will refer her to Dr. Zhang for follow-up. She will call the office on Saturday. Return i nstructions were provided. I will give the patient analgesics along with p.o. Phenergan which typically works better for her for nausea. Discharge Plan Triage Chief Complaint: Flank Pain ED Provider: Doreen Diaz Dx/Rx/DC Orders Clinical Impression: Urinary retention Instructions: ED Urinary Retention, Female Prescriptions: New promethazine 25 mg tablet 25 mg PO TID PRN (Reason: nausea and vomiting) Qty: 14 0RF hydrocodone-acetaminophen 5-325 mg tablet 1 tab PO Q6H PRN PRN (Reason: Pain) 3 Days Qty: 10 0RF No Action gabapentin 800 MG tablet 400 mg PO PRN atorvastatin 20 mg tablet 5 mg PO QHS melatonin 3 mg tablet 6 mg PO QHS Senokot 2 tab PO/SL BID amitriptyline 150 mg tablet 150 mg PO QHS Qty: 30 0RF cyclobenzaprine 10 mg tablet 10 mg PO BID PRN PRN (Reason: muscle spasm) pantoprazole 40 mg tablet,delayed release (DR/EC) 40 mg PO DAILY albuterol sulfate 90 mcg/actuation HFA aerosol inhaler 2 puff inhalation Q4H PRN PRN (Reason: wheezing) budesonide-formoterol [Symbicort] 160-4.5 mcg/actuation HFA aerosol inhaler 2 puff inhalation BID promethazine 25 mg tablet 25 mg PO Q6H PRN PRN (Reason: nausea and vomiting) venlafaxine 150 mg capsule,extended release 24hr 150 mg PO DAILY tamsulosin 0.4 mg capsule 0.4 mg PO QHS Primary Care Provider: Preston Villalta Referrals: Alina Zhang MD [Med Staff - Active Staff] - As soon as possible Preston Villalta MD [Primary Care Provider] - Print Language: Ma[place] Disposition Disposition: Home, Self Care
[2024-06-20] MEDS: 0.9% Normal Saline (1000mL) 1,000 ML 1000 ML IV (17:19)
[2024-06-20] MEDS: Ondansetron 4 MG/2 ML Vial IV (17:24)
[2024-06-20] MEDS: Morphine 4 MG/ML Syringe IV ×2 (17:25→21:00)
[2024-06-20] MEDS: Ketorolac 15 MG/ML Vial IV (17:25)
[2024-06-20 17:32] LABS: Mucous, Urine 0 SEEN /hpf (<or=2+); Red Blood Cells-Urine 0 SEEN /hpf (0-5)
[2024-06-20 17:34] LABS: Absolute Neutrophil Count 7.4 X10^3/uL (2.0-7.7); Basophil# 0.07 X10^3/uL; Basophil% 0.7 % (0-1); Eosinophil# 0.14 X10^3/uL; Eosinophils% 1.3 % (0-5); Hematocrit 35.5 % (37-47); Hemoglobin 10.7 g/dL (12.0-15.0); Lymphocyte % 22.7 % (19-41); Mean Corp Hgb Conc 30.1 g/dL (32-36); Mean Corpuscular Hgb 24.9 pg (27.0-32.0); Mean Corpuscular Volume 82.8 fL (81-99); Mean Platelet Vol. 10.5 fl (6.2-12.0); Monocyte# 0.57 X10^3/uL; Monocyte% 5.4 % (0-10); NRBC Flagged by Analyzer 0 % (0-5); Neutrophil # 7.35 X10^3/uL (2.7-7.7); Neutrophil % 69.5 % (47-70); Platelet Count 370 K/mm3 (150-450); RBC Distribution Width CV 15.1 % (11.6-14.6); RBC Distribution Width SD 45.9 fl (35.1-43.9); Red Blood Count 4.29 M/mm3 (4.2-5.4); White Blood Count 10.6 K/mm3 (4.4-11.0)
[2024-06-20 17:35] VITALS: BP 126/84
[2024-06-20 17:40] LABS: Color, Urine Straw (Yellow); Glucose, Dipstick Normal (Normal); Ketone-Dipstick Negative (Negative); Leukocyte Esterase-Dipstick 500 /ul (Negative); Nitrite-Dipstick Negative (Negative); Occult Blood-Urine 10 /ul (Negative); Protein-Dipstick 15 mg/dl (Negative); Urine Bilirubin Dipstick Negative (Negative); Urine Clarity Cloudy (Clear); Urine Urobilinogen Normal (Normal)
[2024-06-20 17:51] LABS: Squamous Epithelial Cells - UA 25-50 SEEN /hpf (5-10)
[2024-06-20 17:52] LABS: Anion Gap 7 (5-15); BUN 11 mg/dL (7-18); BUN/Creat Ratio 10.1 RATIO (10-20); Calcium,Total 8.7 mg/dL (8.5-10.1); Chloride 104 mmol/L (98-107); Creatinine, Serum 1.09 mg/dL (0.55-1.02); EST Glomerular Filtration Rate 56 mL/min (>60); Est Glom Filt Rate - Afr Amer 68 mL/min (>60); Estimated Creatinine Clearance 68.11 ml/min; Glucose 94 mg/dL (74-106); Potassium 4.1 mmol/L (3.5-5.1); Sodium Level 138 mmol/L (136-145)
[2024-06-20 17:53] LABS: Bacteria 3+ /hpf (None Seen)
[2024-06-20 17:54] LABS: White Blood Cells 25-50 SEEN /hpf (0-5)
[2024-06-20 19:00] VITALS: BP 106/51; PULSE 92; RESP 18; O2SAT 97
[2024-06-20] MEDS: proMETHazine 25 MG Tablet PO (19:00)
[2024-06-20 19:38] VITALS: BP 116/86; PULSE 92; RESP 18; TEMP 36.5; O2SAT 93
[2024-06-20 19:40] LABS: Mucous, Urine 0 SEEN /hpf (<or=2+); Red Blood Cells-Urine 0 SEEN /hpf (0-5)
[2024-06-20 19:41] LABS: Color, Urine Yellow (Yellow); Glucose, Dipstick Normal (Normal); Ketone-Dipstick Negative (Negative); Leukocyte Esterase-Dipstick 500 /ul (Negative); Nitrite-Dipstick Negative (Negative); Occult Blood-Urine Negative /ul (Negative); Protein-Dipstick Negative (Negative); Specific Gravity, Urine 1.005 (1.002-1.030); Urine Bilirubin Dipstick Negative (Negative); Urine Clarity Clear (Clear); Urine Urobilinogen Normal (Normal)
[2024-06-20 19:58] LABS: Bacteria 2+ /hpf (None Seen); Squamous Epithelial Cells - UA 0-5 SEEN /hpf (5-10); White Blood Cells 0-5 SEEN /hpf (0-5)
== END 2024-06-20 21:07 | disposition home or self-care (01) ==
PROVIDERS: Emergency Provider Emergency Medicine; PCP Internal Medicine; Visit Provider Emergency Medicine
DX: R33.9 Retention of urine, unspecified (principal); J44.9 Chronic obstructive pulmonary disease, unspecified; F17.210 Nicotine dependence, cigarettes, uncomplicated; F17.290 Nicotine dependence, other tobacco product, uncomplicated; Z79.51 Long term (current) use of inhaled steroids; Z79.899 Other long term (current) drug therapy
CPT/HCPCS: 51702; 74176; 80048; 81001; 85025; 87086; 96361; 96374; 96375; 96376; 99285; J7030; A4216; J2405

== ENCOUNTER 2024-06-28 10:36 | Emergency (ER) | payer MEDICAID, SELFPAY ==
[2024-06-28 10:37] VITALS: BP 131/77; PULSE 99; RESP 16; TEMP 35.7; O2SAT 100; BMI 42.5
--- NOTE | 2024-06-28 11:18 | EX.ED.DYSGE1 ---
HPI <JACKIE Aponte - Last Filed: 06/28/24 12:35> History of Present Illness Chief Complaint: Flank Pain Narrative Narrative: Patient is a 54-year-old female with history of COPD, GERD who has been seen in the last month multiple times for right-sided flank pain. Patient was diagnosed with a 2 mm obstructing kidney stone on the right side, came in for continued pain, repeat scan was completed and there is 2 mm obstructing stone ended up being actually a phlebolith within the vein there were no ureteral stones or obstructions identified. Patient also has a Spivey catheter placed. This has been in since June 18. Patient states she noticed some drainage around the catheter, she is still having intermittent pains to her right flank and does not see Dr. Najera until July 16. Patient states she is just frustrated, she is not sure what she is post to do. She states the pain is slightly improving however it is still there. She was also confused because they told her she had a stone now she does not have a stone. She is here for evaluation. Denies any fever chills nausea or vomiting. [facility] <JACKIE Aponte - Last Filed: 06/28/24 12:35> [facility] Medical History Substance abuse Anxiety Depression COPD (chronic obstructive pulmonary disease) Home Medications ?Medication ?Instructions ?Recorded ?Last Taken ?Type gabapentin 800 mg tablet 400 mg PO PRN pain 12/22/20 Unknown History Senokot 2 tab PO/SL BID 03/07/22 Unknown History amitriptyline 150 mg tablet 150 mg PO QHS #30 tabs 03/07/22 Unknown Rx atorvastatin 20 mg tablet 5 mg PO QHS 03/07/22 Unknown History melatonin 3 mg tablet 6 mg PO QHS 03/07/22 Unknown History albuterol sulfate 90 mcg/actuation 2 puff inhalation Q4H PRN PRN 06/20/24 Unknown History aerosol inhaler wheezing budesonide-formoterol HFA 160 2 puff inhalation BID 06/20/24 Unknown History mcg-4.5 mcg/actuation aerosol inhaler (Symbicort) cyclobenzaprine 10 mg tablet 10 mg PO BID PRN PRN muscle spasm 06/20/24 Unknown History hydrocodone-acetaminophen 5-325mg 1 tab PO Q6H PRN PRN Pain 3 days 06/20/24 Unknown Rx 5mg-325mg #10 TABLETS pantoprazole 40 mg tablet,delayed 40 mg PO DAILY 06/20/24 Unknown History release promethazine 25 mg tablet 25 mg PO Q6H PRN PRN nausea and 06/20/24 Unknown History vomiting promethazine 25 mg tablet 25 mg PO TID PRN nausea and 06/20/24 Unknown Rx vomiting #14 tabs tamsulosin 0.4 mg capsule 0.4 mg PO QHS 06/20/24 Unknown History venlafaxine 150 mg 150 mg PO DAILY 06/20/24 Unknown History capsule,extended release 24 hr hydrocodone-acetaminophen 5-325mg 1 tab PO Q6H PRN PRN Pain 3 days 06/28/24 Unknown Rx 5mg-325mg #10 TABLETS ondansetron 4 mg disintegrating 4 mg PO Q8H PRN PRN Nausea #10 tabs 06/28/24 Unknown Rx tablet Allergy/AdvReac Type Severity Reaction Status Date / Time No Known Allergies Allergy Verified 06/28/24 10:37 Surgical History History of hysterectomy Social History household members: none Smoking Status: Current every day smoker tobacco type: cigarettes and e-cigarettes substance use type: does not use ROS <Kojo Sellers NP-Darleen - Last Filed: 06/28/24 12:35> ROS ED ROS Narrative Constitutional: Negative for fever, chills, weight loss, weakness Eyes: Negative for vision loss, vision change, double vision ENT: Negative for any sore throat, ear pain, congestion Cardiovascular: Negative for any chest pain, tightness, palpitations Respiratory: Negative for any cough, sputum production, hemoptysis, dyspnea, dyspnea on exertion, orthopnea Gastrointestinal: Negative for any abdominal pain, vomiting, diarrhea, constipation, blood in stool, blood in vomit. Positive right-sided flank. : Negative for any urinary frequency, dysuria, retention, blood in urine Muscle skeletal: Negative for any neck pain, back pain Neurological: Negative for any headache, syncope, dizziness Skin: Negative for any rashes, itching, abrasions, lacerations Psychiatric: Negative for any depression, anxiety, stress, suicidal ideation, homicidal ideation Hematologic: Negative for any excessive bruising, easy bleeding EXAM <JACKIE Aponte - Last Filed: 06/28/24 12:35> Physical Exam Narrative Exam Narrative: Vital signs reviewed. HEET: Head normocephalic atraumatic, TMs clear bilaterally. Posterior pharynx is clear, moist mucous membranes. Nares clear bilaterally. Neck: Supple with no lymphadenopathy or tenderness. No signs of meningismus. Cardiac: Regular rate and rhythm no murmurs gallops or rubs, equal peripheral pulses bilaterally. Respiratory: Lungs clear to auscultation bilaterally. No chest tenderness. Abdomen: Soft, nontender, nondistended. No abdominal bruit or pulsatile masses. No hepatosplenomegaly Extremities: No peripheral edema, no signs of gross trauma or deformity. Active full range of motion of all extremities. Neuro: Cranial nerves II through XII intact, no focal neurological deficits. Skin: Clean dry and intact with no rash, purpura, petechiae, vesicles or pustules. Backs/flank: No CVA tenderness, no midline spinal tenderness, no deformity. Patient's pain is more right lower flank just above the iliac crest. No radiation to the front. Psych: Normal mood and affect. No SI, HI or acute psychosis. Const Vital Signs: 06/28/24 10:37 06/28/24 12:36 Temperature 96.2 F L Temperature Source Temporal Pulse Rate 99 81 Respiratory Rate 16 18 Blood Pressure 131/77 H 121/71 H Blood Pressure Mean 95 87 Pulse Ox 100 98 Oxygen Delivery Method Room Air Room Air Positive well nourished and well developed General Appearance ED: well developed <Dr. Chago Burnham DO - Last Filed: 06/28/24 12:44> Physical Exam Const Vital Signs: 06/28/24 10:37 06/28/24 12:36 Temperature 96.2 F L Temperature Source Temporal Pulse Rate 99 81 Respiratory Rate 16 18 Blood Pressure 131/77 H 121/71 H Blood Pressure Mean 95 87 Pulse Ox 100 98 Oxygen Delivery Method Room Air Room Air MDM <JACKIE Aponte - Last Filed: 06/28/24 12:35> MDM Lab Data Labs: Laboratory Results - last 24 hr 06/28/24 06/28/24 11:15 11:30 WBC 6.1 RBC 4.29 Hgb 10.5 L Hct 35.8 L MCV 83.4 MCH 24.5 L MCHC 29.3 L RDW Std Deviation 46.0 H RDW Coeff of David 15.4 H Plt Count MPV 11.4 Immature Gran % (Auto) 0.200 Neut % (Auto) 63.5 Lymph % (Auto) 27.3 Terrell % (Auto) 6.4 Eos % (Auto) 1.8 Baso % (Auto) 0.8 Absolute Neuts (auto) 3.9 Absolute Lymphs (auto) 1.66 Nucleated RBC % 0 Platelet Estimate ADEQUATE Sodium 139 Potassium 4.9 Chloride 109 H Carbon Dioxide 29.0 Anion Gap 1 L BUN 10 Creatinine 1.04 H Estim Creat Clear Calc 74.90 Est GFR (MDRD) Af Amer 72 Est GFR (MDRD) Non-Af 59 L BUN/Creatinine Ratio 9.6 L Glucose 90 Calcium 8.8 Urine Color Yellow Urine Clarity Clear Urine pH 6.5 Ur Specific Empire 1.010 Urine Protein 30 H Urine Glucose (UA) Normal Urine Ketones Negative Urine Occult Blood 50 H Urine Nitrite Negative Urine Bilirubin Negative Urine Urobilinogen Normal Ur Leukocyte Esterase 100 H Urine RBC 0-5 SEEN Urine WBC 0-5 SEEN Ur Squamous Epith Cells 0 SEEN Urine Bacteria 0 SEEN Urine Mucus 0 SEEN Treatment and Re-Evaluation :: Differential diagnosis includes however is not limited to: Obstructing uropathy, pyelonephritis, UTI, bladder spasm, ZAKIA Patient appears to be in no obvious distress vital signs are stable, patient is nontoxic-appearing. Presenting to the emergency department for ongoing pain to the right flank for 1 month, as well as some leaking around the catheter. Patient examination was gross unremarkable, no red flag signs develop. Speaking with the patient at length, it seems the patient is mostly frustrated, secondary to having the catheter in as well as not seeing the urologist until 2 weeks. I did offer to take the catheter out however she is concerned that she may have to come back. This is appropriate. At this time, the catheter will remain in, it looks well-appearing, urine looks yellow. There is no sediment, no blood. Patient received basic laboratory values as well as urinalysis. Bladder scan will also be obtained. Bladder scan shows that the bladder was decompressed. Patient's laboratory values showed a normal CBC, chronic anemia, no leukocytosis. Chemistries were unremarkable. Urinalysis was negative for any infection. I did speak with the patient, the patient felt much better. Patient responded well to the pain medicine nausea medicine. Patient will be given some pain medicine, nausea medicine for home. She will follow-up with urology as scheduled in 2 weeks. She is instructed to maintain the catheter until then. She is instructed return for any worsening symptoms. There is no evidence of any UTI, pyelonephritis, infectious process. She is happy with the plan of care, she will be switched to a leg bag for easier ambulation. Stable for discharge. <Dr. Cahgo Burnham, DO - Last Filed: 06/28/24 12:44> [facility] History & Record Review Discussion w/independent historian: Patient Lab Data Attestation: I reviewed the patient's lab results. Labs: Laboratory Results - last 24 hr 06/28/24 06/28/24 11:15 11:30 WBC 6.1 RBC 4.29 Hgb 10.5 L Hct 35.8 L MCV 83.4 MCH 24.5 L MCHC 29.3 L RDW Std Deviation 46.0 H RDW Coeff of David 15.4 H Plt Count MPV 11.4 Immature Gran % (Auto) 0.200 Neut % (Auto) 63.5 Lymph % (Auto) 27.3 Terrell % (Auto) 6.4 Eos % (Auto) 1.8 Baso % (Auto) 0.8 Absolute Neuts (auto) 3.9 Absolute Lymphs (auto) 1.66 Nucleated RBC % 0 Platelet Estimate ADEQUATE Sodium 139 Potassium 4.9 Chloride 109 H Carbon Dioxide 29.0 Anion Gap 1 L BUN 10 Creatinine 1.04 H Estim Creat Clear Calc 74.90 Est GFR (MDRD) Af Amer 72 Est GFR (MDRD) Non-Af 59 L BUN/Creatinine Ratio 9.6 L Glucose 90 Calcium 8.8 Urine Color Yellow Urine Clarity Clear Urine pH 6.5 Ur Specific Empire 1.010 Urine Protein 30 H Urine Glucose (UA) Normal Urine Ketones Negative Urine Occult Blood 50 H Urine Nitrite Negative Urine Bilirubin Negative Urine Urobilinogen Normal Ur Leukocyte Esterase 100 H Urine RBC 0-5 SEEN Urine WBC 0-5 SEEN Ur Squamous Epith Cells 0 SEEN Urine Bacteria 0 SEEN Urine Mucus 0 SEEN Treatment and Re-Evaluation :: Differential diagnosis includes however is not limited to: Obstructing uropathy, pyelonephritis, UTI, bladder spasm, ZAKIA Patient appears to be in no obvious distress vital signs are stable, patient is nontoxic-appearing. Presenting to the emergency department for ongoing pain to the right flank for 1 month, as well as some leaking around the catheter. Patient examination was gross unremarkable, no red flag signs develop. Speaking with the patient at length, it seems the patient is mostly frustrated, secondary to having the catheter in as well as not seeing the urologist until 2 weeks. I did offer to take the catheter out however she is concerned that she may have to come back. This is appropriate. At this time, the catheter will remain in, it looks well-appearing, urine looks yellow. There is no sediment, no blood. Patient received basic laboratory values as well as urinalysis. Bladder scan will also be obtained. Bladder scan shows that the bladder was decompressed. Patient's laboratory values showed a normal CBC, chronic anemia, no leukocytosis. Chemistries were unremarkable. Urinalysis was negative for any infection. I did speak with the patient, the patient felt much better. Patient responded well to the pain medicine nausea medicine. Patient will be given some pain medicine, nausea medicine for home. She will follow-up with urology as scheduled in 2 weeks. She is instructed to maintain the catheter until then. She is instructed return for any worsening symptoms. There is no evidence of any UTI, pyelonephritis, infectious process. She is happy with the plan of care, she will be switched to a leg bag for easier ambulation. Stable for discharge. I have personally performed a face to face assessment of the patient and have reviewed the CH[facility] Note. I performed a substantive portion of the visit including all aspects of the following. My chiu findings include: History is 54-year-old female with a indwelling Spivey catheter presenting with intermittent suprapubic pain leakage around the catheter concerns for kidney stone and frustration with her whole medical situation. No reported fevers. She has chronic nausea issues and would like some nausea medication for home use. She has follow-up in about 2 weeks with urology. Exam is alert no acute distress. Afebrile. Mild suprapubic tenderness. No evidence of urinary retention. There is a Spivey catheter indwelling that appears to be draining. Medical Decison Making urinalysis appears normal. White count normal. Creatinine 1.04. Will have the patient transition to a leg bag during the day at her request. We can write for some pain and nausea medicine. We talked about ways to keep the catheter tight so that it avoids leakage which she now understands. Return if worsening or concerns Discharge Plan Triage Chief Complaint: Flank Pain ED Midlevel Provider: Kojo Sellers ED Provider: Chago Burnham Dx/Rx/DC Orders Clinical Impression: Chronic flank pain, Spivey catheter in place Instructions: ED Flank Pain, Uncertain Cause, ED Spivey Catheter, Care Prescriptions: New hydrocodone-acetaminophen 5-325 mg tablet 1 tab PO Q6H PRN PRN (Reason: Pain) 3 Days Qty: 10 0RF ondansetron 4 mg tablet,disintegrating 4 mg PO Q8H PRN PRN (Reason: Nausea) Qty: 10 0RF No Action gabapentin 800 MG tablet 400 mg PO PRN atorvastatin 20 mg tablet 5 mg PO QHS melatonin 3 mg tablet 6 mg PO QHS Senokot 2 tab PO/SL BID amitriptyline 150 mg tablet 150 mg PO QHS Qty: 30 0RF cyclobenzaprine 10 mg tablet 10 mg PO BID PRN PRN (Reason: muscle spasm) pantoprazole 40 mg tablet,delayed release (DR/EC) 40 mg PO DAILY albuterol sulfate 90 mcg/actuation HFA aerosol inhaler 2 puff inhalation Q4H PRN PRN (Reason: wheezing) budesonide-formoterol [Symbicort] 160-4.5 mcg/actuation HFA aerosol inhaler 2 puff inhalation BID promethazine 25 mg tablet 25 mg PO Q6H PRN PRN (Reason: nausea and vomiting) venlafaxine 150 mg capsule,extended release 24hr 150 mg PO DAILY tamsulosin 0.4 mg capsule 0.4 mg PO QHS promethazine 25 mg tablet 25 mg PO TID PRN (Reason: nausea and vomiting) Qty: 14 0RF hydrocodone-acetaminophen 5-325 mg tablet 1 tab PO Q6H PRN PRN (Reason: Pain) 3 Days Qty: 10 0RF Primary Care Provider: Preston Villalta Referrals: Alina Zhang MD [Med Staff - Active Staff] - Preston Villalta MD [Primary Care Provider] - Activity Restrictions/Additional Instructions: Continue to follow-up. Use the medications as needed. Print Language: Hungarian Disposition Disposition: Home, Self Care
[2024-06-28] MEDS: Morphine 4 MG/ML Syringe IV (11:29)
[2024-06-28] MEDS: Ondansetron 4 MG/2 ML Vial IV (11:29)
[2024-06-28 11:40] LABS: Bacteria 0 SEEN /hpf (None Seen); Mucous, Urine 0 SEEN /hpf (<or=2+); Squamous Epithelial Cells - UA 0 SEEN /hpf (5-10)
[2024-06-28 11:45] LABS: Absolute Lymphocyte Count 1.66 X10^3/uL (0.83-4.51); Absolute Neutrophil Count 3.9 X10^3/uL (2.0-7.7); Basophil# 0.05 X10^3/uL; Basophil% 0.8 % (0-1); Eosinophil# 0.11 X10^3/uL; Eosinophils% 1.8 % (0-5); Hematocrit 35.8 % (37-47); Hemoglobin 10.5 g/dL (12.0-15.0); Lymphocyte # 1.66 X10^3/ul (0.83-4.51); Lymphocyte % 27.3 % (19-41); Mean Corp Hgb Conc 29.3 g/dL (32-36); Mean Corpuscular Hgb 24.5 pg (27.0-32.0); Mean Corpuscular Volume 83.4 fL (81-99); Mean Platelet Vol. 11.4 fl (6.2-12.0); Monocyte# 0.39 X10^3/uL; Monocyte% 6.4 % (0-10); NRBC Flagged by Analyzer 0 % (0-5); Neutrophil # 3.85 X10^3/uL (2.7-7.7); Neutrophil % 63.5 % (47-70); POSITIVE COUNT YES; RBC Distribution Width CV 15.4 % (11.6-14.6); Red Blood Count 4.29 M/mm3 (4.2-5.4); White Blood Count 6.1 K/mm3 (4.4-11.0)
[2024-06-28 11:48] LABS: Color, Urine Yellow (Yellow); Glucose, Dipstick Normal (Normal); Ketone-Dipstick Negative (Negative); Leukocyte Esterase-Dipstick 100 /ul (Negative); Nitrite-Dipstick Negative (Negative); Occult Blood-Urine 50 /ul (Negative); Protein-Dipstick 30 mg/dl (Negative); Urine Bilirubin Dipstick Negative (Negative); Urine Clarity Clear (Clear); Urine Urobilinogen Normal (Normal); Urine pH 6.5 (5.0 - 8.0)
[2024-06-28 11:54] LABS: Red Blood Cells-Urine 0-5 SEEN /hpf (0-5); White Blood Cells 0-5 SEEN /hpf (0-5)
[2024-06-28 11:56] LABS: Anion Gap 1 (5-15); BUN 10 mg/dL (7-18); BUN/Creat Ratio 9.6 RATIO (10-20); Calcium,Total 8.8 mg/dL (8.5-10.1); Chloride 109 mmol/L (98-107); Creatinine, Serum 1.04 mg/dL (0.55-1.02); EST Glomerular Filtration Rate 59 mL/min (>60); Est Glom Filt Rate - Afr Amer 72 mL/min (>60); Glucose 90 mg/dL (74-106); Potassium 4.9 mmol/L (3.5-5.1); Sodium Level 139 mmol/L (136-145)
[2024-06-28 12:08] LABS: Differential Indicated SCAN CRITERIA MET
[2024-06-28 12:09] LABS: Platelet Estimate ADEQUATE (ADEQ)
[2024-06-28 12:36] VITALS: BP 121/71; PULSE 81; RESP 18; O2SAT 98
[2024-06-28 12:51] VITALS: BP 121/71; PULSE 82; RESP 16; TEMP 36.1; O2SAT 98
== END 2024-06-28 12:58 | disposition home or self-care (01) ==
PROVIDERS: Nurse Practitioner; Emergency Provider Emergency Medicine; PCP Internal Medicine; Visit Provider Emergency Medicine
DX: R10.9 Unspecified abdominal pain (principal); J44.9 Chronic obstructive pulmonary disease, unspecified; F17.210 Nicotine dependence, cigarettes, uncomplicated; F17.290 Nicotine dependence, other tobacco product, uncomplicated
CPT/HCPCS: 80048; 81001; 85025; 96374; 96375; 96376; 99283; J7030; A4216; J2405

== ENCOUNTER 2024-08-21 21:01 | Emergency (ER) | payer MEDICAID, SELFPAY ==
--- NOTE | 2024-08-21 19:50 | RAD_ITS ---
EXAM: XR LEFT FOOT COMPLETE, 3 OR MORE VIEWS CLINICAL INDICATION: fall TECHNIQUE: Frontal, lateral and oblique views of the left foot. COMPARISON: No relevant prior studies available. FINDINGS: BONES/JOINTS: Unremarkable. No acute fracture. No subluxation. Normal alignment. Preservation of the joint space. No sclerotic or destructive changes observed. SOFT TISSUES: Unremarkable. No soft tissue swelling or gas. No radiopaque foreign body. RAD/Foot min 3 Views IMPRESSION: Negative left foot x-rays. Electronically Signed: Derrell Menon MD at 22:16 EDT ,
--- NOTE | 2024-08-21 19:50 | RAD_ITS ---
EXAM: XR LUMBOSACRAL SPINE, 2 OR 3 VIEWS CLINICAL INDICATION: fall TECHNIQUE: Frontal and lateral views of the lumbar spine and sacrum. COMPARISON: No relevant prior studies available. FINDINGS: VERTEBRAE: Moderate levoscoliosis measuring 25 degrees lumbar spine centered at L2. Multiple level bilateral vertebral facet arthropathy. Preserved vertebral body height. No fracture. No spondylolisthesis.SPACES: Multilevel degenerative disc disease. GASTROINTESTINAL TRACT: Unremarkable as visualized. Included bowel gas pattern is non-obstructive. RAD/Lumbar Spine 2 or 3 Views IMPRESSION: 1. No acute fractures. 2. Moderate levoscoliosis measuring 25 degrees lumbar spine centered at L2. 3. Multilevel degenerative disc disease. 4. Multiple level bilateral vertebral facet arthropathy. Electronically Signed: Derrell Menon MD at 22:20 EDT ,
--- NOTE | 2024-08-21 19:50 | RAD_ITS ---
EXAM: XR LEFT FINGERS, 2 OR MORE VIEWS CLINICAL INDICATION: fall 3rd digit TECHNIQUE: Frontal, lateral and oblique views of the 3rd finger of the left hand. COMPARISON: No relevant prior studies available. FINDINGS: BONES/JOINTS: Unremarkable. No acute fracture. No subluxation. Normal alignment. Preservation of the joint space. No sclerotic or destructive changes observed. SOFT TISSUES: Unremarkable. No soft tissue swelling or gas. No radiopaque foreign body. RAD/Finger(s) Min 2 Views IMPRESSION: Negative x-rays of the left 3rd finger. Electronically Signed: Derrell Menon MD at 22:17 EDT ,
[2024-08-21 21:02] VITALS: BP 93/77; PULSE 101; RESP 20; TEMP 36.3; O2SAT 96; BMI 40.8
[2024-08-21] MEDS: traMADol 50 MG Tablet PO (21:40)
--- NOTE | 2024-08-21 21:53 | EDS_ITS ---
HPI <JACKIE Aponte - Last Filed: 08/21/24 21:59> History of Present Illness Chief Complaint: Fall Narrative Narrative: Patient is a 54-year-old female with history of chronic back pain, depression, tobacco use, GERD, obesity who presents to the [facility] apartment after mechanical fall injuring her back, and foot and hand. Patient states that she does have chronic neck and back pain. She tripped over a shoe, falling towards her right side. Patient has most of her pain on her left foot, left hand, as well as her lower lumbar spine. She denies any head or neck injury. Patient dates she took Tylenol for this did not help. She is here for evaluation. Patient dates she is to be in pain management however she is not anymore. [facility] <JACKIE Aponte - Last Filed: 08/21/24 21:59> [facility] Medical History Substance abuse Anxiety Depression COPD (chronic obstructive pulmonary disease) Home Medications ?Medication ?Instructions ?Recorded ?Last Taken ?Type gabapentin 800 mg tablet 400 mg PO PRN pain 12/22/20 Unknown History Senokot 2 tab PO/SL BID 03/07/22 Unknown History amitriptyline 150 mg tablet 150 mg PO QHS #30 tabs 03/07/22 Unknown Rx atorvastatin 20 mg tablet 5 mg PO QHS 03/07/22 Unknown History melatonin 3 mg tablet 6 mg PO QHS 03/07/22 Unknown History albuterol sulfate 90 mcg/actuation 2 puff inhalation Q4H PRN PRN 06/20/24 Unknown History aerosol inhaler wheezing budesonide-formoterol HFA 160 2 puff inhalation BID 06/20/24 Unknown History mcg-4.5 mcg/actuation aerosol inhaler (Symbicort) cyclobenzaprine 10 mg tablet 10 mg PO BID PRN PRN muscle spasm 06/20/24 Unknown History hydrocodone-acetaminophen 5-325mg 1 tab PO Q6H PRN PRN Pain 3 days 06/20/24 Unknown Rx 5mg-325mg #10 TABLETS pantoprazole 40 mg tablet,delayed 40 mg PO DAILY 06/20/24 Unknown History release promethazine 25 mg tablet 25 mg PO Q6H PRN PRN nausea and 06/20/24 Unknown History vomiting promethazine 25 mg tablet 25 mg PO TID PRN nausea and 06/20/24 Unknown Rx vomiting #14 tabs tamsulosin 0.4 mg capsule 0.4 mg PO QHS 06/20/24 Unknown History venlafaxine 150 mg 150 mg PO DAILY 06/20/24 Unknown History capsule,extended release 24 hr hydrocodone-acetaminophen 5-325mg 1 tab PO Q6H PRN PRN Pain 3 days 06/28/24 Unknown Rx 5mg-325mg #10 TABLETS ondansetron 4 mg disintegrating 4 mg PO Q8H PRN PRN Nausea #10 tabs 06/28/24 Unknown Rx tablet Allergy/AdvReac Type Severity Reaction Status Date / Time No Known Allergies Allergy Verified 08/21/24 21:04 Surgical History History of hysterectomy Social History household members: none Smoking Status: Current every day smoker tobacco type: cigarettes and e- cigarettes substance use type: does not use ROS <JACKIE Aponte - Last Filed: 08/21/24 21:59> ROS ED ROS Narrative Constitutional: Negative for fever, chills, weight loss, weakness Eyes: Negative for vision loss, vision change, double vision ENT: Negative for any sore throat, ear pain, congestion Cardiovascular: Negative for any chest pain, tightness, palpitations Respiratory: Negative for any cough, sputum production, hemoptysis, dyspnea, dyspnea on exertion, orthopnea Gastrointestinal: Negative for any abdominal pain, nausea, vomiting, diarrhea, constipation, blood in stool, blood in vomit : Negative for any urinary frequency, dysuria, retention, blood in urine Muscle skeletal: Positive for back pain, neck pain, left hand, left foot pain Neurological: Negative for any headache, syncope, dizziness Skin: Negative for any rashes, itching, abrasions, lacerations Psychiatric: Negative for any depression, anxiety, stress, suicidal ideation, homicidal ideation Hematologic: Negative for any excessive bruising, easy bleeding EXAM <NAREN AponteC - Last Filed: 08/21/24 21:59> Physical Exam Narrative Exam Narrative: Vital signs reviewed. HEET: Head normocephalic atraumatic, TMs clear bilaterally. Posterior pharynx is clear, moist mucous membranes. Nares clear bilaterally. Pupils are equal round reactive to light. Neck: Supple with no lymphadenopathy or tenderness. No signs of meningismus. Cardiac: Regular rate and rhythm no murmurs gallops or rubs, equal peripheral pulses bilaterally. Respiratory: Lungs clear to auscultation bilaterally. No chest tenderness. Abdomen: Soft, nontender, nondistended. No abdominal bruit or pulsatile masses. No hepatosplenomegaly Extremities: Patient's pain in the left foot is more the dorsal aspect. Pain to the left third finger shows some slight ecchymosis, full range of motion. Skin: Clean dry and intact with no rash, purpura, petechiae, vesicles or pustules. Backs/flank: No CVA tenderness, patient has pain throughout the lower lumbar spine as well as paraspinal area. Patient is good range of motion. Psych: Normal mood and affect. No SI, HI or acute psychosis. Const Vital Signs: 08/21/24 21:02 Temperature 97.3 F L Temperature Source Oral Pulse Rate 101 H Respiratory Rate 20 H Blood Pressure 93/77 Blood Pressure Mean 82 Pulse Ox 96 Oxygen Delivery Method Room Air <Dr. Dileep Tavares MD - Last Filed: 08/21/24 23:31> Physical Exam Const Vital Signs: 08/21/24 21:02 Temperature 97.3 F L Temperature Source Oral Pulse Rate 101 H Respiratory Rate 20 H Blood Pressure 93/77 Blood Pressure Mean 82 Pulse Ox 96 Oxygen Delivery Method Room Air MDM <JACKIE Aponte - Last Filed: 08/21/24 21:59> [facility] Radiography Diagnostic Testing: Clinical Impression(s) from Imaging Studies Finger X-Ray 08/21/24 19:50 IMPRESSION: Negative x-rays of the left 3rd finger. Electronically Signed: Derrell Menon MD at 22:17 EDT , Foot X-Ray 08/21/24 19:50 IMPRESSION: Negative left foot x-rays. Electronically Signed: Derrell Menon MD at 22:16 EDT , Lumbar Spine X-Ray 08/21/24 19:50 IMPRESSION: 1. No acute fractures. 2. Moderate levoscoliosis measuring 25 degrees lumbar spine centered at L2. 3. Multilevel degenerative disc disease. 4. Multiple level bilateral vertebral facet arthropathy. Electronically Signed: Derrell Menon MD at 22:20 EDT , Treatment and Re-Evaluation :: Differential diagnosis includes however is not limited to: Hand contusion, hand fracture, foot fracture, foot contusion, lumbar sprain, compression fracture, acute on chronic back pain Patient appears to be in no obvious distress vital signs are stable, nontoxic- appearing. Presenting to the emergency department after mechanical fall. Patient will receive x-rays of the lower lumbar spine, left foot, left middle finger. Patient received a tramadol, IM Toradol, IM Norflex. Patient will be reevaluated. All radiologic examinations were read, reviewed by the emergency department attending. From these reads, a plan of care will be put in place. <Dr. Dileep Tavares MD - Last Filed: 08/21/24 23:31> [facility] Narrative Medical decision making narrative: I have personally performed a face to face assessment of the patient and have reviewed the [facility] Note. I performed a substantive portion of the visit including all aspects of the following. My chiu findings include: History is tripped over her shoe and fell she states she landed mostly on her back but also hurt her left foot, left hand. She did not hit her head or her neck, but states she twisted her neck in the process, she is chronic neck and low back pain, they are both hurting her worse, and she states she is feeling more crackling in her neck when she moves and around the normal. Exam is mild tenderness at the PIPJ of the left middle finger. Mild tenderness at the PIPJ of toes 3 and 4 on the left foot no significant swelling or deformity. Mild tenderness in the right lumbosacral paraspinal musculature including the midline without any step-off, history of scoliosis which is noted. No midline C-spine tenderness or thoracic spine tenderness. Full range of motion of the neck without any apparent limitation or difficulty. Lungs clear to auscultation throughout no splinting with deep inspiration, rest exam is benign. Medical Decison Making x-rays were obtained of the low back, left middle finger, and the left foot. 3 views of the left foot on my interpretation negative for fracture, 3 views of the left middle finger on my interpretation negative for fracture, 3 views of the lumbar spine show significant scoliosis and chronic abnormalities but I do not see anything that represents an acute fracture. Radiology in agreement on all of this. Patient was given something for pain here, she is reassures comfortable with discharge. Will agree that she does not require emergent imaging of her neck. I think this is simply inflammation that is causing her to have the symptoms. Other additions or changes: [None] Radiography Diagnostic Testing: Clinical Impression(s) from Imaging Studies Finger X-Ray 08/21/24 19:50 IMPRESSION: Negative x-rays of the left 3rd finger. Electronically Signed: Derrell Menon MD at 22:17 EDT Reading Location ID and State: [facility] / [place] Tel , Service support , Foot X-Ray 08/21/24 19:50 IMPRESSION: Negative left foot x-rays. Electronically Signed: Derrell Menon MD at 22:16 EDT Reading Location ID and State: [facility] / [place] Tel , Service support , Lumbar Spine X-Ray 08/21/24 19:50 IMPRESSION: 1. No acute fractures. 2. Moderate levoscoliosis measuring 25 degrees lumbar spine centered at L2. 3. Multilevel degenerative disc disease. 4. Multiple level bilateral vertebral facet arthropathy. Electronically Signed: Derrell Menon MD at 22:20 EDT Reading Location ID and State: [facility] / [place] Tel , Service support , Discharge Plan Triage Chief Complaint: Fall ED Midlevel Provider: Kojo Sellers ED Provider: Dileep Tavares Dx/Rx/DC Orders Clinical Impression: Acute cervical myofascial strain, Contusion of foot, left, Contusion of left middle finger, Lumbar contusion, Fall from slip, trip, or stumble Instructions: ED Back Contusion Prescriptions: No Action gabapentin 800 MG tablet 400 mg PO PRN atorvastatin 20 mg tablet 5 mg PO QHS melatonin 3 mg tablet 6 mg PO QHS Senokot 2 tab PO/SL BID amitriptyline 150 mg tablet 150 mg PO QHS Qty: 30 0RF cyclobenzaprine 10 mg tablet 10 mg PO BID PRN PRN (Reason: muscle spasm) pantoprazole 40 mg tablet,delayed release (DR/EC) 40 mg PO DAILY albuterol sulfate 90 mcg/actuation HFA aerosol inhaler 2 puff inhalation Q4H PRN PRN (Reason: wheezing) budesonide-formoterol [Symbicort] 160-4.5 mcg/actuation HFA aerosol inhaler 2 puff inhalation BID promethazine 25 mg tablet 25 mg PO Q6H PRN PRN (Reason: nausea and vomiting) venlafaxine 150 mg capsule,extended release 24hr 150 mg PO DAILY tamsulosin 0.4 mg capsule 0.4 mg PO QHS promethazine 25 mg tablet 25 mg PO TID PRN (Reason: nausea and vomiting) Qty: 14 0RF hydrocodone-acetaminophen 5-325 mg tablet 1 tab PO Q6H PRN PRN (Reason: Pain) 3 Days Qty: 10 0RF hydrocodone-acetaminophen 5-325 mg tablet 1 tab PO Q6H PRN PRN (Reason: Pain) 3 Days Qty: 10 0RF ondansetron 4 mg tablet,disintegrating 4 mg PO Q8H PRN PRN (Reason: Nausea) Qty: 10 0RF Primary Care Provider: Preston Villalta Referrals: Preston Villalta MD [Primary Care Provider] - 3-5 Days if not improving Print Language: [place] Disposition Disposition: Home, Self Care
[2024-08-21] MEDS: Ketorolac 30 MG/ML Syringe IM (22:01)
[2024-08-21] MEDS: Orphenadrine 60 MG/2 ML Ampul IM (22:01)
[2024-08-21 23:43] VITALS: BP 147/62; PULSE 77; RESP 18; TEMP 36.7; O2SAT 98
== END 2024-08-21 23:44 | disposition home or self-care (01) ==
PROVIDERS: Emergency Provider Emergency Medicine; PCP Internal Medicine; Visit Provider Emergency Medicine
DX: S16.1XXA Strain of muscle, fascia and tendon at neck level, initial encounter (principal); J44.9 Chronic obstructive pulmonary disease, unspecified; S60.032A Contusion of left middle finger without damage to nail, initial encounter; S90.32XA Contusion of left foot, initial encounter; S30.0XXA Contusion of lower back and pelvis, initial encounter; W18.09XA Striking against other object with subsequent fall, initial encounter; G89.29 Other chronic pain; F32.A Depression, unspecified; K21.9 Gastro-esophageal reflux disease without esophagitis; E66.9 Obesity, unspecified; M54.9 Dorsalgia, unspecified; M41.9 Scoliosis, unspecified; M54.2 Cervicalgia; F17.210 Nicotine dependence, cigarettes, uncomplicated; F17.290 Nicotine dependence, other tobacco product, uncomplicated; Z79.899 Other long term (current) drug therapy
CPT/HCPCS: 72100; 73140; 73630; 96372; 99282